=== PATIENT | male | born 1975 | race Caucasian/White ===

== ENCOUNTER 2024-01-28 08:18 | Outpatient (OUT) | payer OTHER, SELFPAY ==
--- NOTE | 2024-01-28 08:29 | XR_ITS ---
The [address] [address] Patient Name: RUTSY RODRIGUEZ MRN: [id number] date: 1975 Sex: M Assigned Patient Location: RAD Current Patient Location: [facility] Accession/Order Number: [id number] Exam Date: 01/28/2024 08:35 Report Date: 01/28/2024 09:39 At the request of: BERTO RICHEY Procedure: XR abdomen 1V EXAMINATION: XR abdomen 1V HISTORY: Ureteral Stone With Hydronephrosis N13.2, Kidney Stones COMPARISON: No relevant comparison available. FINDINGS: KIDNEY/URETER - RIGHT: 6 mm calcification projecting over expected location of right renal pelvis. KIDNEY/URETER - LEFT: No visible renal or ureteral calcifications. PELVIS: Small calcifications within pelvis bilaterally near the expected course of distal ureters; nonspecific. Single calcification lower within the right pelvis compatible with a phlebolith. BOWEL: No abnormal dilation or deviation. BONES: No acute abnormality. OTHER: Negative. No abnormal gaseous collections. XR/XR abdomen 1V IMPRESSION: 1. Suspect 6 mm stone within the right renal pelvis or proximal ureter. 2. Small distal ureteral stone versus pelvic phlebolith bilaterally. 3. No prior studies for comparison. Electronically authenticated by: NANCY NOBLE Date: 01/28/2024 09:39
== END 2024-01-28 08:19 | disposition home or self-care (01) ==
PROVIDERS: Visit Provider Urology
DX: N13.2 Hydronephrosis with renal and ureteral calculous obstruction (principal)
CPT/HCPCS: 74018

== ENCOUNTER 2024-02-07 10:34 | Day surgery (SDC) | payer OTHER, SELFPAY ==
[2024-02-07] VITALS (8 sets, daily range): BP systolic 140–164; BP diastolic 77–104; PULSE 76–92; TEMP 36.1–36.4; O2SAT 92–97; BMI 59.0
--- OUTSIDE RECORDS SUMMARY | 2024-02-07 10:49 | XMS_ITS ---
Patient Summarization (C-CDA 2.1 CCD) Created on: February 07, 2024 RUSTY CONDON : 1975 Sex: Male Author Organization Sample organization Care Team Providers Care Director Of Social Media Marketing Name Role Phone Yumi Morgan Primary Care Provider Yumi Morgan Attending Provider [phone] Fauzia Reed Attending Provider [phone] Yumi Morgan Primary Care Provider [phone] Fauzia Reed Attending Provider Yumi Morgan Attending Provider [phone] Yumi Morgan Unavailable Yumi Morgan Unavailable Yumi Morgan Unavailable Andrea Staton Unavailable Madeline David Unavailable DO Yumi Morgan Primary Care Provider DO Yumi Morgan Attending Provider DO Yumi Morgan Primary Care Provider DO Erna Khan Emergency Provider YUMI MORGAN Primary Care Physician [phone] Yumi Morgan Primary Care Unavailable Erna Khan Attending Unavailable Erna Khan Admitting Unavailable August CHÁVEZ Attending Unavailable YUMI MORGAN Primary Care Unavailable YUMI MORGAN Primary Care Unavailable August CHÁVEZ Attending Unavailable Unavailable Unavailable Unavailable Encounters Encounter Date Encounter Type Care Provider Facility Start: 02-03-2024 End: 02-04-2024 ambulatory YUMI MORGAN Facility:[facility] Start: 02-03-2024 End: 02-03-2024 Patient encounter procedure August Encarnacion CHÁVEZ [facility] Start: 01-10-2024 End: 01-11-2024 ambulatory Augustpaty CHÁVEZ [facility] Start: 01-10-2024 End: 01-10-2024 Patient encounter procedure August CHÁVEZ [facility] Start: 01-09-2024 End: 01-09-2024 ambulatory DO Yumi Morgan Work Phone: [facility] Work Phone: Start: 01-09-2024 End: 01-09-2024 Patient encounter procedure DO Yumi Morgan Work Phone: [facility] [place] Work Phone: Start: 01-08-2024 End: 01-09-2024 Emergency department patient visit Yumi Morgan Facility:[facility] Start: 01-08-2024 End: 01-08-2024 Emergency department patient visit DO Yumi Morgan Work Phone: [facility]gency [facility] Work Phone: Start: 10-21-2023 End: 10-21-2023 ambulatory Yumi Morgan Other [employer] Other Start: 10-21-2023 Telephone encounter Yumi [facility] [place] Start: 09-30-2023 (Procedure) Jonas Morgan [facility] [place] Start: 09-30-2023 End: 09-30-2023 ambulatory Yumi Morgan Other [employer] Other Start: 05-30-2023 (Procedure) Jonas Morgan [facility] [place] Start: 05-30-2023 End: 05-30-2023 ambulatory Yumi Morgan Other [employer] Other Start: 05-21-2023 End: 05-21-2023 ambulatory Yumi Morgan Other [employer] Other Start: 05-21-2023 Telephone encounter Yumi Quach [facility] [place] Start: 04-29-2023 End: 04-29-2023 ambulatory Yumi Morgan Other [employer] Other Start: 04-29-2023 Telephone encounter Yumi Quach [facility] [place] Start: 02-18-2023 End: 02-18-2023 ambulatory Yumi Morgan Other [employer] Other Start: 02-18-2023 Telephone encounter Yumi Quach [facility] [place] Start: 01-14-2023 Encounter for genera l adult medical examination without abnormal findings Yumi Morgan [facility] [place] Start: 01-14-2023 Periodic preventive med est patient 40-64yrs Yumi Daniella [facility] [place] Start: 01-14-2023 End: 01-14-2023 ambulatory DO Yumi Morgan Work Phone: [facility] Work Phone: Start: 01-14-2023 End: 01-14-2023 Patient encounter procedure DO Yumi Morgan Work Phone: [facility] Start: 01-07-2023 End: 01-07-2023 ambulatory Yumi Morgan Other [employer] Other Start: 01-07-2023 Telephone encounter Yumi Quach [facility] Start: 10-18-2022 End: 10-18-2022 ambulatory Madeline David Other [employer] Other Start: 10-18-2022 Patient encounter procedure Madeline David [facility] Start: 07-23-2022 End: 07-23-2022 ambulatory Yumi Morgan Other [employer] Other Start: 07-23-2022 Telephone encounter Yumi [facility] [place] Start: 07-19-2022 (Procedure) Short Yumi Morgan [facility] [place] Start: 07-19-2022 End: 07-19-2022 ambulatory Yumi Morgan Other [employer] Other Start: 07-10-2022 End: 07-10-2022 ambulatory Yumi Morgan Other [employer] Other Start: 07-10-2022 Telephone encounter Yumi Morgan [facility] [place] Start: 04-17-2022 End: 04-17-2022 ambulatory Yumi Morgan Other [employer] Other Start: 04-17-2022 Telephone encounter Yumi Morgan [facility] Start: 01-23-2022 End: 01-23-2022 ambulatory Yumi Morgan Other [employer] Other Start: 01-23-2022 Telephone encounter Yumi Morgan [facility] Start: 01-15-2022 End: 01-15-2022 ambulatory Yumi Morgan Other [employer] Other Start: 01-15-2022 Telephone encounter Yumi Morgan [facility] [place] Start: 01-11-2022 End: 01-11-2022 ambulatory Yumi Morgan Other [employer] Other Start: 01-11-2022 Office outpatient vi sit 15 minutes Yumi Morgan [facility] [place] Start: 01-02-2022 End: 01-02-2022 ambulatory Yumi Morgan Other [employer] Other Start: 01-02-2022 Telephone encounter Yumi [facility]ach [facility] [place] Start: 10-26-2021 End: 10-26-2021 ambulatory Andrea Staton Other [employer] Other Start: 10-26-2021 Office outpatient vi sit 25 minutes Andrea Staton [facility] Start: 09-28-2021 (Procedure) Short Yumi Morgan [facility] [place] Start: 09-28-2021 End: 09-28-2021 ambulatory Yumi Morgan Other [employer] Other Start: 09-05-2021 End: 09-05-2021 ambulatory Yumi Morgan Other [employer] Other Start: 09-05-2021 Telephone encounter Yumi [facility] [place] Start: 09-04-2021 End: 09-04-2021 ambulatory Yumi Morgan Other [employer] Other Start: 09-04-2021 Encounter for genera l adult medical examination without abnormal findings Yumi Morgan [facility] [place] Start: 09-04-2021 Periodic preventive med est patient 40-64yrs Yumi Morgan [facility] [place] Start: 07-21-2021 End: 07-21-2021 ambulatory Yumi Morgan Other [employer] Other Start: 07-21-2021 Telephone encounter Yumi [facility] [place] Start: 07-18-2021 End: 07-18-2021 ambulatory Yumi Morgan Other [employer] Other Start: 07-18-2021 Telephone encounter Yumi [facility] [place] Start: 07-10-2021 Telephone encounter Yumi [facility] [place] Start: 06-22-2021 Office outpatient vi sit 10 minutes Yumi Morgan [facility] [place] Start: 01-11-2021 End: 01-11-2021 Patient encounter procedure Yumi Morgan Work Phone: [facility] Start: 12-17-2020 End: 12-17-2020 Emergency department patient visit Yumi Morgan -Emergency Room Start: 12-11-2020 End: 12-11-2020 Emergency department patient visit Yumi Morgan -Emergency Room Start: 10-31-2020 End: 10-31-2020 Emergency department patient visit Yumi Morgan -Emergency Room Start: 10-27-2020 End: 10-27-2020 Patient encounter procedure Yumi Morgan -Sleep Lab Start: 09-01-2020 End: 09-01-2020 Patient encounter procedure Yumi Morgan -Lab [facility] Medical Equipment Procedure Code Equipment Code Equipment Origin al Text Equipment Identifier Dates Lancets [id number] - Polymeric ureter al stent ()[id number] FDA Start: 08-15-2021 Polymeric ureter al stent ()[id number] FDA Start: 07-19-2021 Goals Date Patient Goal Desired Activity /State Immunizations Immunization Date Immunization Notes Care Provider Fa cility 08-07-2021 COVID-19 Ad26.COV2.S ([place]) DO Yumi Morgan Work Phone: [facility] Comment on above: Result Comment: 2023: [id number] 06-22-2021 Depo-Medrol 80 mg Yumi Wi dmer Other [employer] Other 03-21-2021 Depo-Medrol 40 mg Yumi Wi dmer Other [employer] Other 01-05-2021 Depo-Medrol 80 mg Yumi Wi dmer Other [employer] Other 12-20-2020 Kenalog -40 mg Yumi Widme r Other [employer] Other 10-06-2020 Depo-Medrol 40 mg Yumi Wi dmer Other [employer] Other 10-06-2020 Kenalog -40 mg Yumi Widme r Other [employer] Other 2020 SARS-CoV-2 (COVID-19 ) Ad26 vaccine, recombinant August CHÁVEZ [facility] 06-22-2020 Depo-Medrol 40 mg Yumi Wi dmer Other [employer] Other 06-22-2020 Kenalog -40 mg Yumi Widme r Other [employer] Other 11-26-2019 Kenalog -40 mg Yumi Widme r Other [employer] Other 11-26-2019 Depo-Medrol 80 mg Yumi Wi dmer Other [employer] Other 07-16-2019 Kenalog -40 mg Yumi Widme r Other [employer] Other 07-16-2019 Depo-Medrol 80 mg Yumi Wi dmer Other [employer] Other Medications Current Medications Medication Drug Class(es) Dates Sig (Normalized) Sig (Original) 0.25 MG, 0.5 MG Dose 3 ML semaglutide 0.68 MG/ML Pen Injector [Ozempic] (6 sources) Start: 01-14-2023 Ozempic (0.25 or 0.5 MG/DOSE) 2 MG/3ML 0.25 mg Subcutaneous weekly for 30 days January, Active acetaminophen 325 mg / oxyCODONE hydrochloride 5 mg oral tablet (6 sources) Opioid Agonist Start: 01-08-2024 End: 01-09-2024 take 1 tablet by mouth every six hours Percocet 5 mg-325 mg oral tablet tab(s), Oral, q6hr, Refill(s) 0 Start Date: 01/10/24 Status: Ordered Start: 07-16-2021 End: 07-20-2021 take 1 tablet by mouth every six hours Oxycodone-Acetaminophen (Percocet) 5-325 mg tablet Discontinued 1 - 2 TAB PO Q6H 03 12July 16, 2021 July 20, 2021 7:38am Blood Glucose Test - (20 sources) Start: 12-08-2018 Blood Glucose Test - 1 strip - ONE TOUCH In Vitro daily for 90 days Nov, Active Blood Pressure Cuff - (20 sources) Start: 12-01-2018 Blood Pressure Cuff - as directed Nov, Active cephalexin 500 mg oral capsule (11 sources) Cephalosporin Antibacterial Start: 01-10-2024 take 1 mg by mouth every twelve hours cephalexin 500 mg Cap mg cap(s), Oral, q12hr, Refills(s) 0 Start Date: 01/10/24 Status: Ordered Start: 01-08-2024 take 500 mg by mouth twice daily Cephalexin Active 500 MG PO Twice daily 05 07January 08, 2024 12:00am Start: 11-20-2018 End: 11-30-2018 take 1 capsule by mouth every twelve hours Cephalexin (Keflex) 500 mg capsule Discontinued 500 MG PO Q12H 05 07November 20, 2018 1:00am November 30, 2018 12:02am CPAP Machine (20 sources) CPAP Machine Act genesis 0.5 ml dulaglutide 3 mg/ml auto-injector (11 sources) GLP-1 Receptor Agonist Start: 01-07-20 24 inject 1.5 mg by subcutaneous injection every week Dulaglutide (Trulicity) 1.5 mg/0.5 mL pen injector Active MG SUBCUT January 07, 2024 12:00am 1.5 mg Subcutaneous weekly Start: 01-17-2023 Trulicity 0.75 MG/0.5ML 0.75 mg Subcutaneous weekly for 30 days 1 box = 4 pens January, Active inject 1.5 mg by sub cutaneous injection every week Trulicity 1.5 MG/0.5ML INJECT 1.5 MG UNDER THE SKIN WEEKLY Active ergocalciferol 1.25 mg oral capsule (19 sources) Provitamin D2 Compound Start: 01-07-2024 take 1250 ug by mouth every week Ergocalciferol (Vitamin D2) Active 1250 MCG PO every week January 07, 2024 12:00am Start: 01-15-2022 take 1 capsule by mo uth every week Vitamin D (Ergocalciferol) 1.25 MG (64609 UT) 1 capsule Orally weekly for 30 day(s) January, Active Famotidine (20 sources) Histamine-2 Receptor Antagonist Pepcid PRN Active Glucometer n/a (20 sources) Start: 12-08-2018 Glucometer n/a 1 device as directed Daily once a day Nov, Active glyBURIDE 5 mg oral tablet (20 sources) Sulfonylurea Start: 12-11-2020 Glyburide Active MG TABLET December 11, 2020 10:43am Start: 12-29-2018 GlyBURIDE (Eqv -DiaBeta) 5 mg oral tablet 5 mg = 1 tab(s) Start Date: 07/27/21 Status: Ordered ibuprofen 800 mg oral tablet (14 sources) Nonsteroidal Anti-inflammatory Drug Start: 07-27-2021 ibuprofen 800 mg Tab 800 mg = 1 tab(s) Start Date: 07/27/21 Status: Ordered Start: 07-16-2021 take 600 mg by mouth every eight hours Ibuprofen Active 600 MG PO Q8H July 16, 2021 12:00am Start: 10-31-2020 End: 12-11-2020 take 800 mg by mouth three times daily Ibuprofen Discontinued 800 MG PO Three times daily October 31, 2020 11:19am December 11, 2020 10:43am levothyroxine sodium 0.025 mg oral tablet (20 sources) l-Thyroxine Start: 12-11-2020 take 25 ug by mouth once daily Levothyroxine Active 25 MCG PO Daily December 11, 2020 12:00am Start: 02-22-2020 levothyroxine 25 mcg (0.025 mg) Tab 25 mcg = 1 tab(s), Daily Start Date: 07/27/21 Status: Ordered Start: 02-22-2020 take 1 tablet by yessenia th once daily in the morning Levothyroxine Sodium 25 MCG 1 tablet in the morning on an empty stomach Orally Once a day for 90 day(s) Feb, Active omeprazole 20 mg delayed release oral tablet (1 source) Proton Pump Inhibitor Start: 07-10-2019 take 1 tablet by mouth once daily Omeprazole Magnesium (Prilosec Otc) 20 mg Tablet,Delayed Release (Dr/Ec) Active 20 MG PO Daily July 10, 2019 7:28am ondansetron 4 mg oral tablet (12 sources) Serotonin-3 Receptor Antagonist Start: 07-27-2021 ondansetron 4 mg Tab 4 mg = 1 tab(s), q8hr Start Date: 07/27/21 Status: Ordered Start: 12-11-2020 End: 01-09-2024 take 4 mg by mouth every eight hours Ondansetron Discontinued 4 MG PO Q8H January 08, 2024 12:00am January 09, 2024 9:06am ozempic (0.25 or 0.5 mg/dose) 2 mg/3ml solution pen-injector (3 sources) Start: 01-14-2023 Ozempic (0.25 or 0.5 MG/DOSE) 2 MG/3ML 0.25 mg Subcutaneous weekly for 30 days January, Active pioglitazone 45 mg oral tablet (20 sources) Peroxisome Proliferator Receptor alpha Agonist, Peroxisome Proliferator Receptor gamma Agonist, Thiazolidinedione Start: 12-11-2020 Pioglitazone Active MG TABLET December 11, 2020 10:43am Start: 12-08-2018 pioglitazone 4 5 mg Tab 45 mg = 1 tab(s), Daily Start Date: 07/27/21 Status: Ordered rosuvastatin calcium 40 mg oral tablet (20 sources) HMG-CoA Reductase Inhibitor Start: 12-11-2020 Rosuvastatin Active MG TABLET December 11, 2020 10:43am Start: 12-08-2018 rosuvastatin 4 0 mg Tab 40 mg = 1 tab(s), Daily Start Date: 07/27/21 Status: Ordered tamsulosin hydrochloride 0.4 mg oral capsule (16 sources) alpha-Adrenergic Balbir Start: 12-11-2020 End: 01-09-2024 take 1 capsule by mouth once daily tamsulosin 0.4 mg Cap 0.4 mg = 1 cap(s), Oral, Daily, # 30 cap(s), Refills(s) 0, Pharmacy: [id number], 178, cm, 01/10/24 8:41:00 EDT, Height/Length Dosing, 174, kg, 01/10/24 8:41:00 EDT, Weight Dosing Start Date: 01/10/24 Status: Ordered Completed/Discontinued Medications Medication Drug Class(es) Dates Sig (Normalized) Sig (Original) acetaminophen 325 mg / HYDROcodone bitartrate 5 mg oral tablet (13 sources) Opioid Agonist Start: 10-31-2020 End: 07-16-2021 take 1 tablet by mouth every six hours Hydrocodone-Acetamin ophen Discontinued 1 TAB PO Q6H 12 December 11, 2020 July 16, 2021 2:38am cyclobenzaprine hydrochloride 10 mg oral tablet (8 sources) Muscle Relaxant Start: 12-24-2017 End: 11-20-2018 take 10 mg by mouth three times daily Cyclobenzaprine Discontinued 10 MG PO Three times daily December 24, 2017 12:00am November 20, 2018 8:13pm Dexamethasone (20 sources) Corticosteroid Start: 04-12-2022 DEXAMETHASONE Mar, 4 mg Start: 01-11-2022 DEXAMETHASONE Dec, 4 mg 24 hr diclofenac sodium 100 mg extended release oral tablet (6 sources) Nonsteroidal Anti-inflammatory Drug Start: 12-11-2020 End: 07-16-2021 take 100 mg by mouth twice daily Diclofenac Sodium Discontinued 100 MG PO Twice daily December 11, 2020 12:30pm July 16, 2021 2:38am Durolane (14 sources) Start: 02-21-2023 Durolane Feb, 60 mg methylPREDNISolone acetate 40 mg/ml injectable suspension (20 sources) Corticosteroid Start: 01-11-2022 DEPO-Medrol Mar, 40 mg Start: 01-11-2022 Depo-Medrol 40 mg Dec, 40 mg Start: 09-28-2021 DEPO-Medrol January, 60 mg Start: 09-28-2021 Depo-Medrol 40 mg Sep, 60 mg Start: 06-22-2021 DEPO-Medrol Jul, 60 mg Start: 06-22-2021 Depo-Medrol 80 mg Jun, 60 mg Start: 03-21-2021 Depo-Medrol 40 mg Mar, 40 mg Start: 01-05-2021 Depo-Medrol 80 mg Dec, 80 mg Start: 10-06-2020 Depo-Medrol 40 mg Sep, 40 mg Start: 06-22-2020 Depo-Medrol 40 mg Jun, 40 mg Start: 11-26-2019 Depo-Medrol 80 mg Nov, 40 mg Start: 07-16-2019 Depo-Medrol 80 mg Jun, 40 mg naproxen 500 mg oral tablet (8 sources) Nonsteroidal Anti-inflammatory Drug Start: 12-24-2017 End: 11-20-2018 take 500 mg by mouth every twelve hours at mealtime Naproxen Discontinued 500 MG PO Q12H December 24, 2017 12:00am November 20, 2018 8:13pm administer with food or milk Omeprazole Magnesium (Prilosec Otc) 20 mg Tablet,Delayed Release (Dr/Ec) (7 sources) Start: 07-10-2019 End: 12-11-2020 take 1 tablet by mouth once daily Omeprazole Magnesium (Prilosec Otc) 20 mg Tablet,Delayed Release (Dr/Ec) Discontinued 20 MG PO Daily July 10, 2019 8:28am December 11, 2020 10:43am Start: 07-10-2019 take 1 tablet by yessenia th once daily Omeprazole Magnesium (Prilosec Otc) 20 mg Tablet,Delayed Release (Dr/Ec) Active 20 MG PO Daily July 10, 2019 7:28am Start: 07-10-2019 End: 12-11-2020 take 1 tablet by mouth once daily Omeprazole Magnesium (Prilosec Otc) 20 mg Tablet,Delayed Release (Dr/Ec) Discontinued 20 MG PO Daily July 10, 2019 12:00am December 11, 2020 10:43am oxybutynin chloride 5 mg oral tablet (3 sources) Cholinergic Muscarinic Antagonist Start: 07-19-2021 End: 01-09-2024 take 5 mg by mouth three times daily Oxybutynin Chloride Discontinued 5 MG PO Three times daily July 19, 2021 9:30am January 09, 2024 9:06am sulfamethoxazole 800 mg / trimethoprim 160 mg oral tablet (8 sources) Dihydrofolate Reductase Inhibitor Antibacterial, Sulfonamide Antimicrobial Start: 11-20-2018 End: 11-30-2018 take 1 tablet by mouth twice daily Sulfamethoxazole- Trimethoprim (Bactrim Ds) 800-160 mg tablet Discontinued 1 TAB PO Twice daily 05 07November 20, 2018 1:00am November 30, 2018 12:02am triamcinolone acetonide 40 mg/ml injectable suspension (20 sources) Corticosteroid Start: 10-18-2022 Kenalog-40 Oct, 40 mg Start: 12-20-2020 Kenalog -40 mg Dec, 40 mg Start: 10-06-2020 Kenalog -40 mg Sep, 40 mg Start: 06-22-2020 Kenalog -40 mg Jun, 1 mL Start: 11-26-2019 Kenalog -40 mg Nov, 1 mL Start: 07-16-2019 Kenalog -40 mg Jun, 20 mg Tylenol 8 Hour 650 MG (16 sources) take 2 tablets by mo ut every eight hours as needed Tylenol 8 Hour 650 MG 2 tablets as needed Orally every 8 hrs Not-Taking Payers Date Payer Category Payer Self-pay [id number] 2023 Unknown [id number] [id number] 1975 Unknown [id number] 1975 Unknown [id number] Medicaid [id number] Medicaid [id number] 3 Unknown Self Pay [id number] Unknown [id number] 2.1 [id number] Unknown [facility] [id number] 2 Unknown [id number] Plan of Treatment Date Care Activity Detail Author Start: 01-08-2024 CT Abdomen and Pelvi s WO contrast [facility] Start: 01-08-2024 CT of abdomen and pelvis without contrast CT abdomen pelvis wo con [facility] Start: 01-11-2021 MRI of right knee MR knee RT wo [facility] Patient Education [facility] Patient referral [facility] Problems Problem Classification Problem Date Documented Date Episodic/Chronic Abdominal pain (1 source) Right lower quadrant pain; Translations: [Right lower quadrant pain] Onset: 01-08-2024 Episodic Acute and unspecified renal failure (3 sources) Injury of kidney; Translations: [Acute kidney failure, unspecified] 07-19-2021 Episodic Calculus of urinary tract (20 sources) Ureteric stone of lower third of ureter; Translations: [Calculus of ureter] Onset: 01-08-2024 07-18-2021 Episodic Diabetes mellitus with complications (20 sources) Type 2 diabetes mellitus; Translations: [Type 2 diabetes mellitus with hyperglycemia] Onset: 09-04-2021 Resolved: 01-02-2022 Chronic Diabetes mellitus without complication (20 sources) Type 2 diabetes mellitus without complication; Translations: [Type 2 diabetes mellitus without complications] 07-19-2021 Chronic Disorders of lipid metabolism (20 sources) Mixed hyperlipidemia; Translations: [Mixed hyperlipidemia] Onset: 09-04-2021 Resolved: 04-17-2022 Chronic Genitourinary symptoms and ill-defined conditions (2 sources) Microscopic hematuria 07-27-2021 Episodic Joint disorders and dislocations; trauma-related (20 sources) Internal derangement of right knee; Translations: [Unspecified internal derangement of right knee] Chronic Malaise and fatigue (1 source) Chronic fatigue, unspecified Onset: 01-11-2022 Resolved: 01-11-2022 Chronic Nutritional deficiencies (11 sources) Vitamin D deficiency, unspecified; Translations: [Vitamin D deficiency] Onset: 01-11-2022 Resolved: 01-11-2022 Chronic Osteoarthritis (20 sources) Osteoarthritis of left knee joint; Translations: [Unilateral primary osteoarthritis, left knee] Onset: 06-22-2021 Resolved: 01-11-2022 Chronic Other aftercare (20 sources) High risk drug monitoring status; Translations: [intermission coordinator (current) use of opiate analgesic] Episodic Other circulatory disease (8 sources) Elevated blood pressure; Translations: [Elevated blood-pressure reading, without diagnosis of hypertension] 12-24-2017 Episodic Other connective tissue disease (7 sources) Rupture of tendon of biceps; Translations: [Strain of muscle, fascia and tendon of other parts of biceps, unspecified arm, initial encounter] 10-31-2020 Episodic Other diseases of kidney and ureters (2 sources) Urinary tract obstruction; Translations: [Hydronephrosis with renal and ureteral calculous obstruction] Onset: 01-10-2024 Episodic Other diseases of kidney and ureters (2 sources) Hydronephrosis 07-27-2021 Episodic Other hereditary and degenerative nervous system conditions (20 sources) Restless legs; Translations: [Restless legs syndrome] Chronic Other injuries and conditions due to external causes (8 sources) Muscle strain; Translations: [Other injury of unspecified body region, initial encounter] 12-24-2017 Episodic Other nutritional; endocrine; and metabolic disorders (20 sources) Body mass index 40+ - severely obese; Translations: [Body mass index (BMI) 50.0-59.9, adult] 11-09-2021 Chronic Other nutritional; endocrine; and metabolic disorders (1 source) Body mass index (BMI) 50.0-59.9, adult Onset: 10-26-2021 Resolved: 10-26-2021 Chronic Other nutritional; endocrine; and metabolic disorders (20 sources) Excessive thirst; Translations: [Polydipsia] Episodic Other screening for suspected conditions (not mental disorders or infectious disease) (1 source) Encounter for screening for malignant neoplasm of colon Episodic Other upper respiratory infections (8 sources) Viral upper respiratory tract infection; Translations: [Acute upper respiratory infection, unspecified] 07-10-2019 Episodic Residual codes; unclassified (20 sources) Idiopathic sleep related non-obstructive alveolar hypoventilation; Translations: [Idiopathic sleep related nonobstructive alveolar hypoventilation] Chronic Residual codes; unclassified (20 sources) Obstructive sleep apnea syndrome; Translations: [Obstructive sleep apnea (adult) (pediatric)] Chronic Residual codes; unclassified (1 source) Obstructive sleep apnea (adult) (pediatric) Onset: 10-26-2021 Resolved: 10-26-2021 Chronic Residual codes; unclassified (3 sources) Pain; Translations: [Pain, unspecified] 07-19-2021 Episodic Residual codes; unclassified (3 sources) Other specified health status; Translations: [Failure of outpatient treatment] 07-19-2021 Episodic Spondylosis; intervertebral disc disorders; other back problems (20 sources) Neck pain; Translations: [Cervicalgia] Episodic Sprains and strains (5 sources) Strain of knee; Translations: [Strain of unspecified muscle(s) and tendon(s) at lower leg level, unspecified leg, initial encounter] 12-17-2020 Episodic Thyroid disorders (20 sources) Acquired hypothyroidism; Translations: [Hypothyroidism, unspecified] Onset: 07-10-2021 Resolved: 01-02-2022 Chronic Thyroid disorders (3 sources) Disorder of thyroid gland; Translations: [Disorder of thyroid, unspecified] 07-19-2021 Episodic Procedures Date Procedure Procedure Detail Performing Clinician Start: 01-08-2024 CT of abdomen and pe lvis without contrast DO Yumi Morgan Work Phone: Start: 08-28-2021 Cystoscopic removal of ureteric stent August CHÁVEZ Start: 07-19-2021 Cystoscope, device (physical object) August CHÁEVZ Start: 12-17-2020 X-ray of right knee Beck Morgan Start: 12-11-2020 CT abdomen pelvis wo con Yumi Morgan Knee region structur e (body structure) August CHÁVEZ Results Test Name Value Interpretation Reference Range Facility Patient Educationon 02-03-20 Patient Education Urology Kidney Stones Kidney stones are solid, rock-like deposits that form inside of the kidneys. The kidneys are a pair of organs that make urine. A kidney stone may form in a kidney and move into other parts of the urinary tract, including the tubes that connect the kidneys to the bladder (ureters), the bladder, and the tube that carries urine out of the body (urethra). As the stone moves through these areas, it can cause intense pain and block the flow of urine. Kidney stones are created when high levels of certain minerals are found in the urine. The stones are usually passed out of the body through urination, but in some cases, medical treatment may be needed to remove them. What are the causes? Kidney stones may be caused by: ? A condition in which certain glands produce too much parathyroid hormone (primary hyperparathyroidism), which causes too much calcium buildup in the blood. ? A buildup of uric acid crystals in the bladder (hyperuricosuria). Uric acid is a chemical that the body produces when you eat certain foods. It usually leaves the body in the urine. ? Narrowing (stricture) of one or both of the ureters. ? A kidney blockage that is present at (congenital obstruction). ? Past surgery on the kidney or the ureters. What increases the risk? The following factors may make you more likely to develop this condition: ? Having had a kidney stone in the past. ? Having a family history of kidney stones. ? Not drinking enough water. ? Eating a diet that is high in protein, salt (sodium), or sugar. ? Being overweight or obese. What are the signs or symptoms? Symptoms of a kidney stone may include: ? Pain in the side of the abdomen, right below the ribs (flank pain). Pain usually spreads (radiates) to the groin. ? Needing to urinate often or urgently. ? Painful urination. ? Blood in the urine (hematuria). ? Nausea. ? Vomiting. ? Fever and chills. How is this diagnosed? This condition may be diagnosed based on: ? Your symptoms and medical history. ? A physical exam. ? Blood tests. ? Urine tests. These may be done before and after the stone passes out of your body through urination. ? Imaging tests, such as a CT scan, abdominal X-ray, or ultrasound. ? A procedure to examine the inside of the bladder (cystoscopy). How is this treated? Treatment for kidney stones depends on the size, location, and makeup of the stones. Kidney stones will often pass out of the body through urination. You may need to: ? Increase your fluid intake to help pass the stone. In some cases, you may be given fluids through an IV and may need to be monitored in the hospital. ? Take medicine for pain. ? Make changes in your diet to help prevent kidney stones from coming back. Sometimes, procedures are needed to remove a kidney stone. This may involve: ? A procedure to break up kidney stones using: ? A focused beam of light (laser therapy). ? Shock waves (extracorporeal shock wave lithotripsy). ? Surgery to remove kidney stones. This may be needed if you have severe pain or have stones that block your urinary tract. Follow these instructions at home: Medicines ? Take ylby-tde-skjnxam and prescription medicines only as told by your health care provider. ? Ask your health care provider if the medicine prescribed to you requires you to avoid driving or using heavy machinery. Eating and drinking ? Drink enough fluid to keep your urine pale yellow. You may be instructed to drink at least 8?10 glasses of water each day. This will help you pass the kidney stone. ? If directed, change your diet. This may include: ? Limiting how much sodium you eat. ? Eating more fruits and vegetables. ? Limiting how much animal protein you eat. Animal proteins include red meat, poultry, fish, and eggs. ? Eating a normal amount of calcium (1,000?1,300 mg per day). ? Follow instructions from your health care provider about eating or drinking restrictions. General instructions ? Collect urine samples as told by your health care provider. You may need to collect a urine sample: ? 24 hours after you pass the stone. ? 8?12 weeks after you pass the kidney stone, and every 6?12 months after that. ? Strain your urine every time you urinate, for as long as directed. Use the strainer that your health care provider recommends. ? Do not throw out the kidney stone after passing it. Keep the stone so it can be tested by your health care provider. Testing the makeup of your kidney stone may help prevent you from getting kidney stones in the future. ? Keep all follow-up visits. You may need follow-up X-rays or ultrasounds to make sure that your stone has passed. How is this prevented? To prevent another kidney stone: ? Drink enough fluid to keep your urine pale yellow. This is the best way to prevent kidney stones. ? Eat a healthy diet. Follow recommendations from (more content not included)... 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 Denies passing of stone since last encounter. Has been straining urine. Denies flank pain. Denies difficulty voiding. History of Present Illness Tests reviewed: reviewed UA, KUB I have reviewed the previous health record information and history for this patient from Dr. Chávez. I have reviewed and verified the staff HPI to be accurate for this encounter. Review of Systems PHQ Score Initial Depression Screen Score: 0 SCORE ROS - Provider Constitutional: denies weight loss, denies hot flashes. Eyes: denies eye problems. Gastrointestinal: denies nausea, denies vomiting. Cardiovascular: denies chest pain or angina. Integumentary: no dryness Musculoskeletal: denies musculoskeletal symptoms. ENMT: denies otolaryngeal symptoms. Respiratory: no shortness of breath. Heme/Lymph: denies easy bleeding tendency, denies easy bruising tendency. Psychiatric: no confusion, no anxiety. Genitourinary: See HPI. Physical Exam Vitals & Measurements HR: 77(Peripheral) RR: 16 BP: 135/86 HT: 70 in HT: 178 cm WT: 174 kg WT: 382.8 lb BMI: 54.92 General Appearance: alert, no distress, well nourished, well developed male. Genitourinary: normal scrotum, normal testes, normal urethra, normal epididymis, normal vas deferens/spermatic cord. Flank Pain: none. Bladder: nonpalpable. Assessment/Plan KML pt. 1. Ureteral stone with hydronephrosis (N13.2: Hydronephrosis with renal and ureteral calculous obstruction) [facility] ER 01/08/24 with right-sided flank pain. CT AP wo IV con 01/08/24 - a 6 mm distal right ureteral stone with mild hydronephrosis present. Stone is 2 cm from the UVJ. Right perinephric and periureteral stranding. KUB 01/28/24 [facility] - 6 mm calcification projecting over expected location of R renal pelvis. No visible L renal or ureteral calcifications. Small calcifications within pelvis bilaterally near expected course of distal ureters. Denies any stone passage since last encounter. Denies any flank pain. No changes in urinary pattern. UA today shows small blood, likely due to stone. Denies gross hematuria. Reviewed imaging results, R ureteral stone in place. However discussed pt may have passed stone after last appt. Discussed further imaging to better evaluate if stone has truly passed. -Obtain XR IVP. Will call pt with results -Increase fluid intake -Strain urine -If pt passes stone, proceed with metabolic workup 2. Kidney stones (N20.0: Calculus of kidney) S/p L ESWL 08/15/2021. S/p cysto w/ L stent removal 08/28/21. KUB 09/28/2021 shows a punctate Lt kidney fragment. Renal US 10/16/2021 neg for stones or hydro. CT AP wo IV con 01/08/24 [facility] - nonobstructing right nephrolithiasis measuring up to 5 mm. KUB 01/28/24 [facility] - 6 mm calcification projecting over expected location of R renal pelvis. No visible L renal or ureteral calcifications. Small calcifications within pelvis bilaterally near expected course of distal ureters. Discussed treating right renal stone once pt either passes ureteral stone or is treated surgically. Pt agrees with plan. -Will eventually treat right stone Follow-up With When Contact Information KAIDEN CONNER, August Encarnacion, URL [facility] [address], [place] [address]- [phone] Additional Instructions: f/u pending IVP results Patient Education Kidney Stones I, Jessica Barajas, personally scribed for Dr. Chávez on 02/03/2024 13:10:06. . Documentation recorded by the scribe, Jessica Barajas, accurately reflects the services(s) I performed and decisions made by me. Authenticated by Dr. Chávez on 02/03/2024 13:12:01. Problem List/Past Medical History Ongoing BMI 50.0-59.9, adult Hyperlipidemia Hypothyroid Kidney stones Microscopic hematuria Type 1 diabetes Ureteral stone with hydronephrosis Historical No qualifying data Procedure/Surgical History Cystoscopic removal of ureteric stent (08/28/2021), Cystoscope (07/19/2021), Knee. Medications GlyBURIDE (Eqv-DiaBeta) 5 mg oral tablet, 5 mg= 1 tab(s) ibuprofen 800 mg Tab, 800 mg= 1 tab(s) levothyroxine 25 mcg (0.025 mg) Tab, 25 mcg= 1 tab(s), Daily pioglitazone 45 mg Tab, 45 mg= 1 tab(s), Daily rosuvastatin 40 mg Tab, 40 mg= 1 tab(s), Daily tamsulosin 0.4 mg Cap, 0.4 mg= 1 cap(s), Oral, Daily Allergies No Known Allergies Social History Alcohol - Denies Alcohol Use, 07/27/2021 Tobacco Former smoker, quit more than 30 days ago Tobacco Use:. Never Smokeless Tobacco Use:. Cigarettes, Household tobacco concerns: No. Yes, 02/03/2024 Family History Diabetes mellitus: Grandparent. Epilepsy: Grandparent. Immunizations Vaccine Date Status Comments SARS-CoV-2 (COVID-19) Ad26 vaccine 08/07/2021 Recorded 2024-02-03: TPV40 SARS-CoV-2 (COVID-1 (more content not included)... Normal [facility] Comment on above: Result Comment: Elec tronically Signed By: August CHÁVEZ MD\.br\Date and Time Signed: 02/03/24 13:12 EDT\.br\Electronically Co-Signed By: Jessica Barajas\.br\Date and Time Co-Signed: 02/03/24 13:10 EDT RAD - MISCon 02-01-2024 RAD - MISC [id number] [facility] Ambulatory Visit Summaryon 0 01-10-2024 Ambulatory Visit Summary RUSTY CONDON :1975 Visit Date:01/10/2024 Ambulatory Visit Instructions Your Diagnosis Ureteral stone with hydronephrosis Kidney stones Tests Performed XR Abdomen 1 View -- Results Pending -- Please visit your patient portal for your results or contact your primary care physician. Your Care Team Attending Physician - August CHÁVEZ MD Primary Care Physician - YUMI MORGAN DO This Is Your Medications List tamsulosin (tamsulosin 0.4 mg Cap) Contact prescribing physician if questions or concerns acetaminophen-oxycodone (Percocet 5 mg-325 mg oral tablet) cephalexin (cephalexin 500 mg Cap) glyBURIDE (GlyBURIDE (Eqv-DiaBeta) 5 mg oral tablet) ibuprofen (ibuprofen 800 mg Tab) levothyroxine (levothyroxine 25 mcg (0.025 mg) Tab) ondansetron (ondansetron 4 mg Tab) pioglitazone (pioglitazone 45 mg Tab) rosuvastatin (rosuvastatin 40 mg Tab) Procedures Performed Cystoscopic removal of ureteric stent (08/28/2021), Cystoscope (07/19/2021). Discharge Vitals Temperature (Temporal Artery) 37 ?C Heart Rate (Peripheral) 80 Respiratory Rate 16 Blood Pressure 138/87 Height 178 cm Height 70 in Weight 174 kg Weight 382.8 lb BMI 54.92 What to do next Scheduled Follow-Up Appointments Saturday 12:00 PM EDT With: August CHÁVEZ MD Where: [facility] Emergency Department ED Note-Physicianon 01-10-20 ED Note-Physician [id number] [facility] Patient Educationon 01-10-20 Patient Education Urology Kidney Stones Kidney stones are rock-like masses that form inside of the kidneys. Kidneys are organs that make pee (urine). A kidney stone may move into other parts of the urinary tract, including: ? The tubes that connect the kidneys to the bladder (ureters). ? The bladder. ? The tube that carries urine out of the body (urethra). Kidney stones can cause very bad pain and can block the flow of pee. The stone usually leaves your body (passes) through your pee. You may need to have a doctor take out the stone. What are the causes? Kidney stones may be caused by: ? A condition in which certain glands make too much parathyroid hormone (primary hyperparathyroidism). ? A buildup of a type of crystals in the bladder made of a chemical called uric acid. The body makes uric acid when you eat certain foods. ? Narrowing (stricture) of one or both of the ureters. ? A kidney blockage that you were born with. ? Past surgery on the kidney or the ureters, such as gastric bypass surgery. What increases the risk? You are more likely to develop this condition if: ? You have had a kidney stone in the past. ? You have a family history of kidney stones. ? You do not drink enough water. ? You eat a diet that is high in protein, salt (sodium), or sugar. ? You are overweight or very overweight (obese). What are the signs or symptoms? Symptoms of a kidney stone may include: ? Pain in the side of the belly, right below the ribs (flank pain). Pain usually spreads (radiates) to the groin. ? Needing to pee often or right away (urgently). ? Pain when going pee (urinating). ? Blood in your pee (hematuria). ? Feeling like you may vomit (nauseous). ? Vomiting. ? Fever and chills. How is this treated? Treatment depends on the size, location, and makeup of the kidney stones. The stones will often pass out of the body through peeing. You may need to: ? Drink more fluid to help pass the stone. In some cases, you may be given fluids through an IV tube put into one of your veins at the hospital. ? Take medicine for pain. ? Make changes in your diet to help keep kidney stones from coming back. Sometimes, medical procedures are needed to remove a kidney stone. This may involve: ? A procedure to break up kidney stones using a beam of light (laser) or shock waves. ? Surgery to remove the kidney stones. Follow these instructions at home: Medicines ? Take obda-oas-zvvxwjd and prescription medicines only as told by your doctor. ? Ask your doctor if the medicine prescribed to you requires you to avoid driving or using heavy machinery. Eating and drinking ? Drink enough fluid to keep your pee pale yellow. You may be told to drink at least 8?10 glasses of water each day. This will help you pass the stone. ? If told by your doctor, change your diet. This may include: ? Limiting how much salt you eat. ? Eating more fruits and vegetables. ? Limiting how much meat, poultry, fish, and eggs you eat. ? Follow instructions from your doctor about eating or drinking restrictions. General instructions ? Collect pee samples as told by your doctor. You may need to collect a pee sample: ? 24 hours after a stone comes out. ? 8?12 weeks after a stone comes out, and every 6?12 months after that. ? Strain your pee every time you pee (urinate), for as long as told. Use the strainer that your doctor recommends. ? Do not throw out the stone. Keep it so that it can be tested by your doctor. ? Keep all follow-up visits as told by your doctor. This is important. You may need follow-up tests. How is this prevented? To prevent another kidney stone: ? Drink enough fluid to keep your pee pale yellow. This is the best way to prevent kidney stones. ? Eat healthy foods. ? Avoid certain foods as told by your doctor. You may be told to eat less protein. ? Stay at a healthy weight. Where to find more information ? National Kidney Foundation (NKF): www.kidney.org ? [employer] (UCF): www.urologyhealth.org Contact a doctor if: ? You have pain that gets worse or does not get better with medicine. Get help right away if: ? You have a fever or chills. ? You get very bad pain. ? You get new pain in your belly (abdomen). ? You pass out (faint). ? You cannot pee. Summary ? Kidney stones are rock-like masses that form inside of the kidneys. ? Kidney stones can cause very bad pain and can block the flow of pee. ? The stones will often pass out of the body through peeing. ? Drink enough fluid to keep your pee pale yellow. This information is not intended to replace advice given to you by your health care provider. Make sure you discuss any questions you have with your health care provider. Document Revised: 05/07/2022 Document Reviewed: 05/07/2022 [employer] Patient Education ? 2022 [employer] [facility] Provider Letteron 01-10-2024 Provider Letter (Inserted Image. Cecy ble to display) January 10, 2024 RUSTYChristophe CONDON [address] [place] [id number] : 1975 To Whom It May Concern, Please excuse above patient from work. Date of Illness: From: 01/10/24 To: 01/10/24 May Return to Work On: 01/11/24 Restrictions: None Comments: Patient had an appointment on 01/10/[address] August Chávez. Sincerely, [facility] Normal [facility] RAD - CT Reporton 01-10-[address] - [address] Report [id number] Normal [facility] Urology Office/Clinic Noteon 01-10-2024 Urology Office/Clinic Note Chief Complaint right ureteral stone HPI Staff F/u to [facility] ED visit 01/08/24 for right sided flank pain. Has a hx of kidney stones. CT done 01/08/24 showed a 6mm distal right ureteral calculus with mild hydronephrosis. Pt states that the pain subsided around 1pm yesterday and has not returned. He has not noticed passing any stones. Dysuria: no Incomplete bladder emptying: no Hematuria: none at any time Frequency: pt is going every couple of hours now but for about 3 days leading up to his OV he was voiding about every 15 minutes or so Urgency: no Nocturia: pt does not get up Stream: good steady stream Leaking: no Post void dripping: no Wearing pads/ Depends: no Urge incontinence: no Stress incontinence: no Incontinence without Sensory Awareness: no Abdominal pain: none at this time subsided yesterday Flank pain: none at this time Sexual complaints: no History of Present Illness Tests reviewed: reviewed UA, CT, ER records. I have reviewed the previous health record information and history for this patient from Dr. Wu and external provider. I have reviewed and verified the staff HPI to be accurate for this encounter. There have been no associated fever, chills, flank pain, or blood in the urine. Denies any urinary infections since last encounter. Review of Systems PHQ Score Initial Depression Screen Score: 0 SCORE ROS - Provider Constitutional: denies weight loss, denies hot flashes. Eyes: denies eye problems. Gastrointestinal: denies nausea, denies vomiting. Cardiovascular: denies chest pain or angina. Integumentary: no dryness Musculoskeletal: denies musculoskeletal symptoms. ENMT: denies otolaryngeal symptoms. Respiratory: no shortness of breath. Heme/Lymph: denies easy bleeding tendency, denies easy bruising tendency. Psychiatric: no confusion, no anxiety. Genitourinary: See HPI. Physical Exam Vitals & Measurements T: 37 ?C(Temporal Artery) HR: 80(Peripheral) RR: 16 BP: 138/87 HT: 70 in HT: 178 cm WT: 174 kg WT: 382.8 lb BMI: 54.92 General Appearance: alert, no distress, well nourished, well developed male. Flank Pain: none. abd is nontender Assessment/Plan KML pt. Last seen 11/09/21. 1. Ureteral stone with hydronephrosis (N13.2: Hydronephrosis with renal and ureteral calculous obstruction) Pt presented to [facility] ER 01/08/24 with right-sided flank pain. CT AP wo IV con 01/08/24 shows a 6 mm distal right ureteral stone with mild hydronephrosis present. Stone is 2 cm from the UVJ. Right perinephric and periureteral stranding. ER started pt on Flomax, Ibuprofen, Percocet, Keflex, and Zofran. Pt was not provided a strainer. Has been checking the toilet after he voids to see if he passed the stone. Has not noticed anything yet. Pain has subsided since yesterday. Denies gross hematuria. UA today shows trace-intact blood. Has been voiding frequently. Nontender on exam today. Pt may have passed stone, however not confirmed. Will have pt follow up in 2-3 weeks with KUB. Pt to call and cx appointment if he passes stone. Pt advised to obtain stone specimen so it can be sent for stone analysis. Possible cysto, ureteroscopy, laser litho with stent if pt does not pass stone. Would treat renal stone at that same time. -Strainer provided, cont Flomax, refill sent -Pt to call the office if pain recurs or present back to the ER if severe -Follow up in 2 wks w/ KUB -Metabolic workup in the future 2. Kidney stones (N20.0: Calculus of kidney) S/p L ESWL 08/15/2021. S/p cysto w/ L stent removal 08/28/21. KUB 09/28/2021 shows a punctate Lt kidney fragment. Renal US 10/16/2021 neg for stones or hydro. CT AP wo IV con 01/08/24 shows nonobstructing right nephrolithiasis measuring up to 5 mm. Discussed treating right renal stone once pt either passes ureteral stone or is treated surgically. Pt agrees with plan. -Will eventually treat right stone Follow-up With When Contact Information KAIDEN CONNER, August Encarnacion, URL [address] [id number] Additional Instructions: 2 weeks w/ KUB Patient Education Kidney Stones, [id number] I, Carrie Norwood, personally scribed for Dr. Chávez on 01/10/2024 09:01:49. . Documentation recorded by the scribe, Carrie Norwood, accurately reflects the services(s) I performed and decisions made by me. Authenticated by Dr. Chávez on 01/10/2024 09:04:46. Problem List/Past Medical History Ongoing BMI 50.0-59.9, adult Hyperlipidemia Hypothyroid Kidney stones Microscopic hematuria Type 1 diabetes Ureteral stone with hydronephrosis Historical No qualifying data Procedure/Surgical History Cystoscopic removal of ureteric stent (08/28/2021), Cystoscope (07/19/2021). Medications cephalexin 500 mg Cap, Oral, q12hr GlyBURIDE (Eqv-DiaBeta) 5 mg oral tablet, 5 mg= 1 tab(s) ibuprofen 800 mg Tab, 800 mg= 1 tab(s) levothyroxine 25 mcg (0.025 mg) T (more content not included)... Normal [facility] Comment on above: Result Comment: Elec tronically Signed By: August CHÁVEZ MD\.br\Date and Time Signed: 01/10/24 09:04 EDT\.br\Electronically Co-Signed By: Carrie Norwood\.br\Date and Time Co-Signed: 01/10/24 09:[address] abdomen pelvis wo conon 0 01-09-2024 CT abdomen pelvis wo con [facility] [address] [place] [address] CT Scan Report Signed Patient: Rusty Condon MR#: [id number] : 1975 Acct:[id number] Age/Sex: 48 / M ADM Date: 01/08/24 Loc: ER Room: Type: [facility] ER Attending Dr: Copies to: Erna Khan DO Ordering Provider: Erna Khan DO Date of Service: 01/08/24 CT/CT abdomen pelvis wo con: abdominal pain CT Abdomen and Pelvis withoutcontrast TECHNIQUE: Axial imaging with 2-D reconstruction. . The CT exam was performed using one or more the following dose reduction techniques: Automated exposure control, adjustment of the MA and/or Kv according to patient size, or use of the iterative reconstruction technique. COMPARISON: 07/16/2021 History: Right flank pain. LIMITATIONS: None LOWER THORAX mild atelectasis. LIVER: Unremarkable GALLBLADDER: No gallbladder abnormality identified. BILE DUCTS: No dilatation SPLEEN: Unremarkable PANCREAS: Unremarkable ADRENAL GLANDS: Unremarkable KIDNEYS:6 mm distal right ureteral stone with mild hydronephrosis present. Stone is 2 cm from the ureterovesical junction. Right perinephric and periureteral stranding. Nonobstructing right nep hrolithiasis measuring up to 5 mm.. AORTA: No abdominal aortic aneurysm identified. Mild atherosclerosis. RETROPERITONEUM: No significant retroperitoneal abnormalities identified. MESENTERY:Unremarkable SMALL BOWEL: The small bowel loops are nondistended. APPENDIX: The appendix is normal. COLON: Unremarkable URINARY BLADDER: Urinary bladder is unremarkable. REPRODUCTIVE SYSTEM: Reproductive structures are unremarkable. PNEUMOPERITONEUM: None PERITONEAL FLUID:None BONY STRUCTURES: Degenerative change. ABDOMINAL WALL: Large fat-containing umbilical hernia redemonstrated. CT/CT abdomen pelvis wo con IMPRESSION: 6 mm distal right ureteral calculus with mild hydronephrosis. Right nephrolithiasis. Redemonstration of large fat-containing. Umbilical hernia. Impression dictated by: Maxime Kyle M.D.01/09/2024 7:49 AM Dictation Location: [place] [id number] Transcribed By: [facility] 01/09/24 0749 Dictated By: Maxime Kyle DO 01/09/24 0744 Signed By: 01/09/24 0749 Normal [facility] ECG 12 lead ECG 01-09-2024 ECG 12 lead ECG [facility] [place] [address] Electrocardiograph Report Signed Patient: Rusty Condon MR#: [id number] [birth year] : 1975 Acct:[id number] Age/Sex: 48 / M ADM Date: 01/08/24 Loc: ER Room: Type: [facility] ER Attending Dr: Ordering Provider: Erna Khan DO Date of Service: 01/08/24 ECG/ECG 12 lead ECG: Abdominal Pain Copies to: Test Reason : Blood Pressure : 174/096 mmHG Vent. Rate : 094 BPM Atrial Rate : 094 BPM P-R Int : 180 ms QRS Dur : 096 ms QT Int : 338 ms P-R-T Axes : 067 008 078 degrees QTc Int : 422 ms Normal sinus rhythm Normal ECG When compared with ECG of 19-JUL-2021 08:40, No significant change was found Confirmed by ERNA KHAN DO ([id number]) on 01/09/2024 12:36:02 AM Referred By: Electronically Signed By:ERNA KHAN DO Transcribed By: MUS Signed By Erna Khan DO 01/08 0036 Normal [facility] Alanine aminotransferase [En zymatic activity/volume] in Serum or PlasmaOrdered By: Erna Khan on 01-08-2024 ALT [Catalytic activity/Vol] 15 U/L 7-52 [facility] Albumin [Mass/volume] in Ser um or Plasma by Bromocresol green (BCG) dye binding methoOrdered By: Erna Khan on 01-08-2024 Albumin BCG dye [Mass/Vol] 4.3 g/dL 3.5-5.7 [facility] Alkaline phosphatase [Enzyma tic activity/volume] in Serum or PlasmaOrdered By: Erna Khan on 01-08-2024 ALP [Catalytic activity/Vol] 39 U/L 34-104 [facility] Aspartate aminotransferase [ Enzymatic activity/volume] in Serum or PlasmaOrdered By: Erna Khan on 01-08-2024 AST [Catalytic activity/Vol] 18 U/L 13-39 [facility] Automated erythrocytes count in urine sediment (number/area)Ordered By: Erna Khan on 01-08-2024 RBC Auto (Urine sed) [#/Area] 3-4 [HPF] 0-4 [facility] Automated leukocytes count i n urine sediment (number/area)Ordered By: Erna Khan on 01-08-2024 WBC Auto (Urine sed) [#/Area] 0-1 [HPF] 0-4 [facility] Basic Metabolic Panelon 12-16 Anion gap [Moles/Vol] 10.5 mmol/L Normal 6.0-15.0 [facility] Comment on above: Performed By: #### C BC, LIPASE, HEPATIC, BMP #### [facility] [address] [place] [address] [place] Calcium [Mass/Vol] 9.8 mg/dL Normal 8.6-10.3 [facility] Comment on above: Performed By: #### C BC, LIPASE, HEPATIC, BMP #### [facility] [address] [place] [address] [place] Chloride [Moles/Vol] 102 mmol/L Normal 98-107 [facility] Comment on above: Performed By: #### C BC, LIPASE, HEPATIC, BMP #### [facility] [address] [place] [address] [place] CO2 [Moles/Vol] 31.3 mmol/L High 21.0-31.0 [facility] Comment on above: Performed By: #### C BC, LIPASE, HEPATIC, BMP #### [facility] [address] [place] [id number] [place] Creatinine [Mass/Vol] 1.03 mg/dL Normal 0.70-1.30 [facility] Comment on above: Performed By: #### C BC, LIPASE, HEPATIC, BMP #### [facility] [address] [place] [address] [place] Creatinine Clr Calc Pharmacy 148.77 Normal [facility] Comment on above: Performed By: #### C BC, LIPASE, HEPATIC, BMP #### [facility] [address] [place] [id number] [place] GFR/1.73 sq M.predicted MDRD (S/P/Bld) [Vol rate/Area] mL/min/{1.73_m2} Normal [facility] Comment on above: Performed By: #### C BC, LIPASE, HEPATIC, BMP #### [facility] [address] Glucose [Mass/Vol] 125 mg/dL High 70-100 [facility] Comment on above: Result Comment: [place] Glucose Reference Range is dependent on time and content of last meal. Glucose of more than 200 mg/dL in a nonstressed, ambulatory subject supports the diagnosis of Diabetes Mellitus. ADA recommended reference range Performed By: #### C BC, LIPASE, HEPATIC, BMP #### [facility] [address] Potassium [Moles/Vol] 3.8 mmol/L Normal 3.5-5.1 [facility] Comment on above: Performed By: #### C BC, LIPASE, HEPATIC, BMP #### [facility] [address] [place] [address] [place] Sodium [Moles/Vol] 140 mmol/L Normal 136-145 [facility] Comment on above: Performed By: #### C BC, LIPASE, HEPATIC, BMP #### [facility] [address] Urea nitrogen [Mass/Vol] 18 mg/dL Normal 7-25 [facility] Comment on above: Performed By: #### C BC, LIPASE, HEPATIC, BMP #### [facility] [address] Basophils Auto (Bld) [#/Vol] Ordered By: Erna Khan on 01-08-2024 Basophils (Bld) [#/Vol] 0.1 10*3/uL 0.0-0.2 [facility] Basophils/100 WBC Auto (Bld) Ordered By: Erna Khan on 01-08-2024 Basophils/100 WBC (Bld) 0.8 % . [facility] Bilirubin Test strip Ql (U)O rdered By: Erna Khan on 01-08-2024 Bilirubin Ql (U) Negative Negative [facility] Bilirubin.direct [Mass/volum e] in Serum or PlasmaOrdered By: Erna Khan on 01-08-2024 Bilirubin.direct [Mass/Vol] 0.10 mg/dL 0.03-0.18 [facility] Bilirubin.total [Mass/volume ] in Serum or PlasmaOrdered By: Erna Khan on 01-08-2024 Bilirubin [Mass/Vol] 0.4 mg/dL 0.3-1.[address] [facility] Calcium [Mass/volume] in Ser um or PlasmaOrdered By: Erna Khan on 01-08-2024 Calcium [Mass/Vol] 9.8 mg/dL 8.6-10.3 [facility] Carbon dioxide, total [Moles /volume] in Serum or PlasmaOrdered By: Enra Khan on 01-08-2024 CO2 [Moles/Vol] 31.3 mmol/L 21.0-31.0 [facility] Chloride [Moles/volume] in S [place] or PlasmaOrdered By: Erna Kahn on 01-08-2024 Chloride [Moles/Vol] 102 mmol/L 98-[address] [facility] Color Auto (U)Ordered By: Marcelo Khan on 01-08-2024 Color (U) Yellow Yellow [facility] Complete Blood Count Auto Di ffon 01-08-2024 Basophils (Bld) [#/Vol] 0.1 10*3/uL Normal 0.0-0.2 [facility] Comment on above: Result Comment: PERF ORMED BY: [place] [address] PATHOLOGIST [employer] WORKER EDUARDO GRAYSON M.D. Performed By: #### C BC, LIPASE, HEPATIC, BMP #### [address] Basophils/100 WBC (Bld) 0.8 % Normal . [facility] Comment on above: Performed By: #### C BC, LIPASE, HEPATIC, BMP #### [facility] [address] Eosinophils (Bld) [#/Vol] 0.2 10*3/uL Normal 0.0-0.45 [facility] Comment on above: Performed By: #### C BC, LIPASE, HEPATIC, BMP #### [address] Eosinophils/100 WBC (Bld) 2.7 % Normal . [facility] Comment on above: Performed By: #### C BC, LIPASE, HEPATIC, BMP #### [address] Erythrocyte distribution width (RBC) [Ratio] 15.0 % High 12.0-14.8 [facility] Comment on above: Performed By: #### C BC, LIPASE, HEPATIC, BMP #### [address] Hematocrit (Bld) [Volume fraction] 37.4 % Low 38.8-50.0 [facility] Comment on above: Performed By: #### C BC, LIPASE, HEPATIC, BMP #### [address] Hemoglobin (Bld) [Mass/Vol] 12.7 g/dL Low 13.0-17.0 [facility] Comment on above: Performed By: #### C BC, LIPASE, HEPATIC, BMP #### [address] Lymphocytes (Bld) [#/Vol] 1.6 10*3/uL Normal 1.00-4.8 [facility] Comment on above: Performed By: #### C BC, LIPASE, HEPATIC, BMP #### [address] Lymphocytes/100 WBC (Bld) 20.6 % Normal . [facility] Comment on above: Performed By: #### C BC, LIPASE, HEPATIC, BMP #### [address] MCH (RBC) [Entitic mass] 29.1 pg Normal 27.5-35.2 [facility] Comment on above: Performed By: #### C BC, LIPASE, HEPATIC, BMP #### [address] MCV (RBC) [Entitic vol] 85.9 fL Normal 83.5-101 [facility] Comment on above: Performed By: #### C BC, LIPASE, HEPATIC, BMP #### [address] Mean Corpuscular HGB Conc 33.9 g/dL Normal 32.5-35.6 [facility] Comment on above: Performed By: #### C BC, LIPASE, HEPATIC, BMP #### [address] Monocytes (Bld) [#/Vol] 0.6 10*3/uL Normal 0.0-0.8 [facility] Comment on above: Performed By: #### C BC, LIPASE, HEPATIC, BMP #### [address] Monocytes/100 WBC (Bld) 15.23 % Normal 0.00-20.00 [facility] Comment on above: Performed By: #### C BC, LIPASE, HEPATIC, BMP #### [address] Monocytes/100 WBC (Bld) 7.7 % Normal . [facility] Comment on above: Performed By: #### C BC, LIPASE, HEPATIC, BMP #### [address] Neutrophils (Bld) [#/Vol] 5.2 10*3/uL Normal 1.8-7.7 [facility] Comment on above: Performed By: #### C BC, LIPASE, HEPATIC, BMP #### [place] [address] [place] Neutrophils/100 WBC (Bld) 68.2 % Normal . [facility] Comment on above: Performed By: #### C BC, LIPASE, HEPATIC, BMP #### [address] NRBC% 0.0 /100{WBC} Normal 0-0.5 [facility] Comment on above: Performed By: #### C BC, LIPASE, HEPATIC, BMP #### [address] Platelet mean volume (Bld) [Entitic vol] 7.6 fL Normal 6.6-10.1 [facility] Comment on above: Performed By: #### C BC, LIPASE, HEPATIC, BMP #### [facility] [address] [place] [address] [place] Platelets (Bld) [#/Vol] 219 10*3/uL Normal 150-450 [facility] Comment on above: Performed By: #### C BC, LIPASE, HEPATIC, BMP #### [facility] [address] [place] [address] [place] RBC (Bld) [#/Vol] 4.35 10*6/uL Normal 3.90-5.[address] [facility] Comment on above: Performed By: #### C BC, LIPASE, HEPATIC, BMP #### [facility] [address] [place] [id number] [place] WBC (Bld) [#/Vol] 7.7 10*3/uL Normal 4.1-10.5 [facility] Comment on above: Performed By: #### C BC, LIPASE, HEPATIC, BMP #### [address] Creatinine [Mass/volume] in Serum or PlasmaOrdered By: Erna Khan on 01-08-2024 Creatinine [Mass/Vol] 1.03 mg/dL 0.70-1.30 [facility] Dipstick and Microscopicon 0 01-08-2024 Appearance (U) Clear Normal Clear [facility] Comment on above: Order Comment: Name Collection Type:: Clean-Voided Midstream Performed By: #### A DDONUAPLUS #### [address] Bacteria,Urine None Seen Normal None Seen [facility] Comment on above: Order Comment: Name Collection Type:: Clean-Voided Midstream Performed By: #### A DDONUAPLUS #### [address] Bilirubin,Urine Negative Normal Negative [facility] Comment on above: Order Comment: Name Collection Type:: Clean-Voided Midstream Performed By: #### A DDONUAPLUS #### [facility] [address] [place] [address] [place] Color (U) Yellow Normal Yellow [facility] Comment on above: Order Comment: Name Collection Type:: Clean-Voided Midstream Performed By: #### A DDONUAPLUS #### [facility] [address] [place] [address] [place] Glucose Ql (U) Normal Normal Normal [facility] Comment on above: Order Comment: Name Collection Type:: Clean-Voided Midstream Performed By: #### A DDONUAPLUS #### [place] [address] [place] Hyaline Casts,Urine None Seen Normal 0-8 [facility] Comment on above: Order Comment: Name Collection Type:: Clean-Voided Midstream Result Comment: PERF ORMED BY: [place] [address] PATHOLOGIST [employer] WORKER EDUARDO GRAYSON M.D. Performed By: #### A DDONUAPLUS #### [place] [address] [place] Ketones Ql (U) Negative Normal Negative [facility] Comment on above: Order Comment: Name Collection Type:: Clean-Voided Midstream Performed By: #### A DDONUAPLUS #### [place] [address] [place] Leukocyte esterase Test strip Ql (U) Negative Normal Negative [facility] Comment on above: Order Comment: Name Collection Type:: Clean-Voided Midstream Performed By: #### A DDONUAPLUS #### [place] [address] [place] Nitrite,Urine Negative Normal Negative [facility] Comment on above: Order Comment: Name Collection Type:: Clean-Voided Midstream Performed By: #### A DDONUAPLUS #### [place] [address] [place] Occult Blood,Urine 1+ High Negative [facility] Comment on above: Order Comment: Name Collection Type:: Clean-Voided Midstream Result Comment: PERF ORMED BY: [place] [address] PATHOLOGIST [employer] WORKER EDUARDO GRAYSON M.D. Performed By: #### A DDONUAPLUS #### [address] pH (U) 5.5 [pH] Normal 5.0-9.0 [facility] Comment on above: Order Comment: Name Collection Type:: Clean-Voided Midstream Performed By: #### A DDONUAPLUS #### [address] Protein,Urine Negative Normal Negative [facility] Comment on above: Order Comment: Name Collection Type:: Clean-Voided Midstream Performed By: #### A DDONUAPLUS #### [address] RBC,Urine 3-4 Normal 0-4 [facility] Comment on above: Order Comment: Name Collection Type:: Clean-Voided Midstream Performed By: #### A DDONUAPLUS #### [address] Specificy [place],Urine 1.016 Normal 1.001-1.03 0 [facility] Comment on above: Order Comment: Name Collection Type:: Clean-Voided Midstream Performed By: #### A DDONUAPLUS #### [address] Squamous Epithelial Cell,Urine None Seen Normal 0-2 [facility] Comment on above: Order Comment: Name Collection Type:: Clean-Voided Midstream Performed By: #### A DDONUAPLUS #### [address] Urobilinogen,Urine Normal Normal Normal [facility] Comment on above: Order Comment: Name Collection Type:: Clean-Voided Midstream Performed By: #### A DDONUAPLUS #### [place] [address] [place] WBC LM.HPF (Urine sed) [#/Area] 0 /[HPF] Normal 0-4 [facility] Comment on above: Order Comment: Name Collection Type:: Clean-Voided Midstream Performed By: #### A DDONUAPLUS #### [facility] [address] Eosinophils Auto (Bld) [#/Vo l]Ordered By: Erna Khan on 01-08-2024 Eosinophils (Bld) [#/Vol] 0.2 10*3/uL 0.0-0.45 [facility] Eosinophils/100 WBC Auto (Bl d)Ordered By: Erna Khan on 01-08-2024 Eosinophils/100 WBC (Bld) 2.7 % . [facility] Erythrocyte distribution wid th Auto (RBC) [Ratio]Ordered By: Erna Khan on 01-08-2024 Erythrocyte distribution width (RBC) [Ratio] 15.0 % 12.0-14.8 [facility] Globulin Calc (S) [Mass/Vol] Ordered By: Erna Khan on 01-08-2024 Globulin (S) [Mass/Vol] 2.5 g/dL [facility] Glucose [Mass/volume] in Ser um or PlasmaOrdered By: Erna Khan on 01-08-2024 Glucose [Mass/Vol] 125 mg/dL 70-100 [facility] Comment on above: ADA recommended refe rence rangeRandom Glucose Reference Range is dependent on time and content of last meal. Glucose of more than 200 mg/dL in a nonstressed, ambulatory subject supports the diagnosis of Diabetes Mellitus. Hematocrit Auto (Bld) [Volum e fraction]Ordered By: Erna Khan on 01-08-2024 Hematocrit (Bld) [Volume fraction] 37.4 % 38.8-50.0 [facility] Hemoglobin [Mass/volume] in BloodOrdered By: Erna Khan on 01-08-2024 Hemoglobin (Bld) [Mass/Vol] 12.7 g/dL 13.0-17.0 [facility] Hepatic Panelon 01-08-2024 Albumin [Mass/Vol] 4.3 g/dL Normal 3.5-5.7 [facility] Comment on above: Performed By: #### C BC, LIPASE, HEPATIC, BMP #### [facility] [address] Albumin/Globulin [Mass ratio] 1.7 {ratio} Normal [facility] Comment on above: Performed By: #### C BC, LIPASE, HEPATIC, BMP #### [facility] [address] ALP [Catalytic activity/Vol] 39 U/L Normal 34-104 [facility] Comment on above: Performed By: #### C BC, LIPASE, HEPATIC, BMP #### [facility] [address] ALT [Catalytic activity/Vol] 15 U/L Normal 7-52 [facility] Comment on above: Performed By: #### C BC, LIPASE, HEPATIC, BMP #### [address] AST [Catalytic activity/Vol] 18 U/L Normal 13-39 [facility] Comment on above: Performed By: #### C BC, LIPASE, HEPATIC, BMP #### [address] Bilirubin [Mass/Vol] 0.4 mg/dL Normal 0.3-1.0 [facility] Comment on above: Performed By: #### C BC, LIPASE, HEPATIC, BMP #### [address] Bilirubin,Indirect 0.3 mg/dL Normal [facility] Comment on above: Performed By: #### C BC, LIPASE, HEPATIC, BMP #### [address] Bilirubin.indirect [Mass/Vol] 0.10 mg/dL Normal 0.03-0.18 [facility] Comment on above: Performed By: #### C BC, LIPASE, HEPATIC, BMP #### [address] Globulin (S) [Mass/Vol] 2.5 g/dL Normal [facility] Comment on above: Performed By: #### C BC, LIPASE, HEPATIC, BMP #### [address] [address] [place] Protein [Mass/Vol] 6.8 g/dL Normal 6.4-8.9 [facility] Comment on above: Performed By: #### C BC, LIPASE, HEPATIC, BMP #### [facility] [address] [place] [address] [place] INR in Platelet poor plasma by Coagulation assayOrdered By: Erna Khan on 01-08-2024 INR Coag (PPP) [Relative time] 1.1 {INR} [facility] Comment on above: INR Therapeutic Rang e A) Pre- and Peroperative OAT started two weeks before surgery. NOT HIP SURGERY: 1.5 - 2.5 HIP SURGERY: 2 - 3B) Primary and secondary prevention of venous THROMBOSIS: 2 - 3C) Active venous thrombosis, pulmonary embolismand prevention of recurrent venous thrombosis: 2 - 3D) Prevention of arterial thromboembolismincluding patients with mechanical heart valves: 3 - 4.5 Ketones Auto test strip (U) [Mass/Vol]Ordered By: Erna Khan on 01-08-2024 Ketones (U) [Mass/Vol] Negative Negative [facility] - UrinalysisOrder ed By: Erna Khan on 01-08-2024 Hyaline casts LM Ql (Urine sed) None seen [LPF] 0-8 [facility] Leukocytes [#/volume] correc john for nucleated erythrocytes in Blood by Automated counOrdered By: Erna Khan on 01-08-2024 WBC corrected for nucl RBC Auto (Bld) [#/Vol] 7.7 10*3/uL 4.1-10.5 [facility] Lipaseon 01-08-2024 Lipase [Catalytic activity/Vol] 22.0 U/L Normal 11.0-82.0 [facility] Comment on above: Result Comment: PERF ORMED BY: [place] [address] PATHOLOGIST [employer] WORKER EDUARDO GRAYSON M.D. Performed By: #### C BC, LIPASE, HEPATIC, BMP #### [facility] [address] [place] [id number] [place] Lipase [Enzymatic activity/v olume] in Serum or PlasmaOrdered By: Erna Khan on 01-08-2024 Lipase [Catalytic activity/Vol] 22.0 U/L 11.0-82.0 [facility] Lymphocytes Auto (Bld) [#/Vo l]Ordered By: Erna Khan on 01-08-2024 Lymphocytes (Bld) [#/Vol] 1.6 10*3/uL 1.00-4.8 [facility] Lymphocytes/100 WBC Auto (Bl d)Ordered By: Erna Khan on 01-08-2024 Lymphocytes/100 WBC (Bld) 20.6 % . [facility] MCH Auto (RBC) [Entitic mass ]Ordered By: Erna Khan on 01-08-2024 MCH (RBC) [Entitic mass] 29.1 pg 27.5-35.2 [facility] MCHC Auto (RBC) [Mass/Vol]Or dered By: Erna Khan on 01-08-2024 MCHC (RBC) [Mass/Vol] 33.9 g/dL 32.5-35.6 [facility] MCV Auto (RBC) [Entitic vol] Ordered By: Erna Khan on 01-08-2024 MCV (RBC) [Entitic vol] 85.9 fL 83.5-101 [facility] Monocyte distribution width [Entitic volume] in Blood by AutomatedOrdered By: Erna Khan on 01-08-2024 Monocyte distribution width Auto (Bld) [Entitic vol] 15.23 % 0.00-20.00 [facility] Monocytes Auto (Bld) [#/Vol] Ordered By: Erna Khan on 01-08-2024 Monocytes (Bld) [#/Vol] 0.6 10*3/uL 0.0-0.8 [facility] Monocytes/100 WBC Auto (Bld) Ordered By: Erna Khan on 01-08-2024 Monocytes/100 WBC (Bld) 7.7 % . [facility] Neutrophils Auto (Bld) [#/Vo l]Ordered By: Erna Khan on 01-08-2024 Neutrophils (Bld) [#/Vol] 5.2 10*3/uL 1.8-7.7 [facility] Neutrophils/100 WBC Auto (Bl d)Ordered By: Erna Khan on 01-08-2024 Neutrophils/100 WBC (Bld) 68.2 % . [facility] Nitrite Test strip Ql (U)Ord ered By: Erna Khan on 01-08-2024 Nitrite Ql (U) Negative Negative [facility] No Panel InformationOrdered By: Erna Khan on 01-08-2024 Estimated GFR (CKD-EPI) > 60.0 mL/Min [facility] Creatinine Clearance (Chem 148.77 [facility] Nucleated erythrocytes [Pres ence] in Blood by Automated countOrdered By: Erna Khan on 01-08-2024 Nucleated RBC Auto Ql (Bld) 0.0 /100{WBC} 0-0.5 [facility] Platelet mean volume Auto (B ld) [Entitic vol]Ordered By: Erna Khan on 01-08-2024 Platelet mean volume (Bld) [Entitic vol] 7.6 fL 6.6-10.1 [facility] Platelets Auto (Bld) [#/Vol] Ordered By: Erna Khan on 01-08-2024 Platelets (Bld) [#/Vol] 219 10*3/uL 150-450 [facility] Potassium [Moles/volume] in Serum or PlasmaOrdered By: Erna Khan on 01-08-2024 Potassium [Moles/Vol] 3.8 mmol/L 3.5-5.1 [facility] Protein Auto test strip (U) [Mass/Vol]Ordered By: Erna Khan on 01-08-2024 Protein (U) [Mass/Vol] Negative Negative [facility] Protein [Mass/volume] in Ser um or PlasmaOrdered By: Erna Khan on 01-08-2024 Protein [Mass/Vol] 6.8 g/dL 6.4-8.9 [facility] Prothrombin Time INRon 01-07 INR Coag (PPP) [Relative time] 1.1 {INR} Normal [facility] Comment on above: Result Comment: INR Therapeutic Range A) Pre- and Peroperative OAT started two weeks before surgery. NOT HIP SURGERY: 1.5 - 2.5 HIP SURGERY: 2 - 3 B) Primary and secondary prevention of venous THROMBOSIS: 2 - 3 C) Active venous thrombosis, pulmonary embolism and prevention of recurrent venous thrombosis: 2 - 3 D) Prevention of arterial thromboembolism including patients with mechanical heart valves: 3 - 4.5 PERFORMED BY: [place] [address] PATHOLOGIST PONY WORKER EDUARDO GRAYSON M.D. Performed By: #### P T #### [place] [id number] [facility] PT Coag (PPP) [Time] 13.0 s High 9.0-12.9 [facility] Comment on above: Result Comment: A matocrit value greater than 55% may lead to inaccurate results in coagulation testing. Patients having hematocrit values >55% require a special collection tube for coagulation studies. Please contact the laboratory at [phone] for redraw instructions. Performed By: #### P T #### [place] [id number] [facility] Prothrombin time (PT)Ordered By: Erna Khan on 01-08-2024 PT Coag (PPP) [Time] 13.0 s 9.0-12.[address] [facility] Comment on above: A hematocrit value g reater than 55% may lead to inaccurate results in coagulation testing. Patients having hematocrit values >55% require a special collection tube for coagulation studies. Please contact the laboratory at [phone] for redraw instructions. RBC Auto (Bld) [#/Vol]Ordere d By: Erna Khan on 01-08-2024 RBC (Bld) [#/Vol] 4.35 10*6/uL 3.90-5.60 [facility] Serum or plasma albumin/glob ulin mass ratioOrdered By: Erna Khan on 01-08-2024 Albumin/Globulin [Mass ratio] 1.7 {ratio} [facility] Serum or plasma anion gap de terminationOrdered By: Erna Khan on 01-08-2024 Anion gap [Moles/Vol] 10.5 mmol/L 6.0-15.0 [facility] Serum or plasma non-glucuron idated bilirubin measurement (mass/volume)Ordered By: Erna Khan on 01-08-2024 Bilirubin.indirect [Mass/Vol] 0.3 mg/dL [facility] Sodium [Moles/volume] in Ser um or PlasmaOrdered By: Erna Khan on 01-08-2024 Sodium [Moles/Vol] 140 mmol/L 136-145 [facility] Specific gravity Auto test s trip (U) [Rel density]Ordered By: Erna Khan on 01-08-2024 Specific gravity (U) [Rel density] 1.016 1.001-1.03 0 [facility] Squamous epithelial cells de tection in urine sediment by light microscopyOrdered By: Erna Khan on 01-08-2024 Epithelial cells.squamous LM Ql (Urine sed) None seen [HPF] 0-2 [facility] Urea nitrogen [Mass/volume] in Serum or PlasmaOrdered By: Erna Khan on 01-08-2024 Urea nitrogen [Mass/Vol] 18 mg/dL 7-25 [facility] Urine bacteria detection by automated methodOrdered By: Erna Khan on 01-08-2024 Bacteria Auto Ql (U) None seen None Seen [facility] Urine clarity by refractomet ry automatedOrdered By: Erna Khan on 01-08-2024 Clarity Refractometry automated (U) Clear Clear [facility] Urine glucose measurement by automated test strip (mass/volume)Ordered By: Erna Khan on 01-08-2024 Glucose Auto test strip (U) [Mass/Vol] Normal mg/dL Normal [facility] Urine hemoglobin detection b y automated test stripOrdered By: Erna Khan on 01-08-2024 Hemoglobin Auto test strip Ql (U) 1+ Negative [facility] Urine leukocyte esterase det ection by automated test stripOrdered By: Erna Khan on 01-08-2024 Leukocyte esterase Auto test strip Ql (U) Negative Negative [facility] Urobilinogen Auto test strip (U) [Mass/Vol]Ordered By: Erna Khan on 01-08-2024 Urobilinogen (U) [Mass/Vol] Normal mg/dL Normal [facility] WBC Auto (Bld) [#/Vol]Ordere d By: Erna Khan on 01-08-2024 WBC (Bld) [#/Vol] 7.7 10*3/uL 4.1-10.5 [facility] pH Auto test strip (U)Ordere d By: Erna Khan on 01-08-2024 pH (U) 5.5 [pH] 5.0-9.0 [facility] A1C HEMOGLOBINon 01-14-2023 HbA1c (Bld) [Mass fraction] 6.2 % [employer] Other Alanine aminotransferase [En zymatic activity/volume] in Serum or PlasmaOrdered By: Yumi Morgan on 01-14-2023 ALT [Catalytic activity/Vol] 19 U/L Normal 7-52 U/L [facility] Albumin [Mass/volume] in Ser um or Plasma by Bromocresol green (BCG) dye binding methoOrdered By: Yumi Morgan on 01-14-2023 Albumin BCG dye [Mass/Vol] 4.5 g/dL 3.5-5.7 [facility] Alkaline phosphatase [Enzyma tic activity/volume] in Serum or PlasmaOrdered By: Yumi Morgan on 01-14-2023 ALP [Catalytic activity/Vol] 51 U/L Normal 34-104 U/L [facility] Aspartate aminotransferase [ Enzymatic activity/volume] in Serum or PlasmaOrdered By: Yumi Morgan on 01-14-2023 AST [Catalytic activity/Vol] 16 U/L Normal 13-39 U/L [facility] Bilirubin.total [Mass/volume ] in Serum or PlasmaOrdered By: Yumi Morgan on 01-14-2023 Bilirubin [Mass/Vol] 0.6 mg/dL 0.3-1.[address] [facility] Calcium [Mass/volume] in Ser um or PlasmaOrdered By: Yumi Morgan on 01-14-2023 Calcium [Mass/Vol] 9.0 mg/dL 8.6-10.3 [facility] Carbon dioxide, total [Moles /volume] in Serum or PlasmaOrdered By: Yumi Morgan on 01-14-2023 CO2 [Moles/Vol] 29.9 mmol/L 21.0-31.0 [facility] Chloride [Moles/volume] in S shelley or PlasmaOrdered By: Yumi Morgan on 01-14-2023 Chloride [Moles/Vol] 102 mmol/L Normal 98-107 mmol/L [facility] Comprehensive Metabolic Pane km 01-14-2023 Albumin [Mass/Vol] 4.437201 g/dL Normal 3.5-5.7 g/dL [employer] Other Bilirubin [Mass/Vol] 0.8761289 mg/dL Normal 0.3- 1.0 mg/dL [employer] Other Calcium [Mass/Vol] 9.1303016 mg/dL Normal 8.6-10 .3 mg/dL [employer] Other CO2 [Moles/Vol] 29.57523695 mmol/L Normal 21.0-3 1.0 mmol/L [employer] Other Creatinine [Mass/Vol] 0.80563380 mg/dL Normal 0. 70-1.30 mg/dL [employer] Other GFR/1.73 sq M.predicted MDRD (S/P/Bld) [Vol rate/Area] mL/min/{1.73_m2} [employer] Other Potassium [Moles/Vol] 4.38626331 mmol/L Normal 3 .5-5.1 mmol/L [employer] Other Protein [Mass/Vol] 7.879515 g/dL Normal 6.4-8.9 g/dL [employer] Other Comprehensive Metabolic Panel 2.6 g/dL [employer] Other Creatinine [Mass/volume] in Serum or PlasmaOrdered By: Yumi Morgan on 01-14-2023 Creatinine [Mass/Vol] 0.90 mg/dL 0.70-1.30 [facility] Globulin Calc (S) [Mass/Vol] Ordered By: Yumi Morgan on 01-14-2023 Globulin (S) [Mass/Vol] 2.6 g/dL [facility] Glucose [Mass/volume] in Ser um or PlasmaOrdered By: Yumi Morgan on 01-14-2023 Glucose [Mass/Vol] 67 mg/dL Low 70-100 mg/dL [facility] Comment on above: ADA recommended refe rence rangeRandom Glucose Reference Range is dependent on time and content of last meal. Glucose of more than 200 mg/dL in a nonstressed, ambulatory subject supports the diagnosis of Diabetes Mellitus. HbA1c (Bld) [Mass fraction]o n 01-14-2023 A1C HEMOGLOBIN [employer] Other No Panel InformationOrdered By: Yumi Morgan on 01-14-2023 Estimated GFR (CKD-EPI) > 60.0 mL/Min [facility] Creatinine Clearance (Chem N/A [facility] Potassium [Moles/volume] in Serum or PlasmaOrdered By: Yumi Morgan on 01-14-2023 Potassium [Moles/Vol] 4.0 mmol/L 3.5-5.1 [facility] Protein [Mass/volume] in Ser um or PlasmaOrdered By: Yumi Morgan on 01-14-2023 Protein [Mass/Vol] 7.1 g/dL 6.4-8.9 [facility] Serum or plasma albumin/glob ulin mass ratioOrdered By: Yumi Morgan on 01-14-2023 Albumin/Globulin [Mass ratio] 1.7 {ratio} [facility] Serum or plasma anion gap de terminationOrdered By: Yumi Morgan on 01-14-2023 Anion gap [Moles/Vol] 11.1 mmol/L 6.0-15.0 [facility] Sodium [Moles/volume] in Ser um or PlasmaOrdered By: Yumi Morgan on 01-14-2023 Sodium [Moles/Vol] 139 mmol/L Normal 136-145 mmol/L [facility] Thyroid Stim Hormone w/Rflxo n 01-14-2023 Thyroid Stim Hormone w/Rflx 2.26 u[iU]/mL Normal 0.45-5.33 u[iU]/mL [employer] Other Thyrotropin [Units/volume] i n Serum or PlasmaOrdered By: Yumi Morgan on 01-14-2023 TSH Qn 2.26 m[IU]/L 0.45-5.33 [facility] Urea nitrogen [Mass/volume] in Serum or PlasmaOrdered By: Yumi Morgan on 01-14-2023 Urea nitrogen [Mass/Vol] 14 mg/dL Normal 7-25 mg/dL [facility] Vitamin D 25 Hydroxy Totalon 01-14-2023 Vitamin D 25 Hydroxy Total 35.0 ng/mL Normal 30-100 ng/mL [employer] Other Vitamin D+Metabolites [Mass/ volume] in Serum or PlasmaOrdered By: Yumi Morgan on 01-14-2023 Vitamin D+Metabolites [Mass/Vol] 35.0 ng/mL 30-100 [facility] Comment on above: VITAMIN D STATUS 25( [place])VITAMIN D RANGE (ng/mL) Deficient <20 Insufficient 20 to <30Sufficient 30 to 100Reference: Stephen MF,Christopher COLBERT, Trang HILLS, et al. Evaluation,treatment, and prevention of vitamin D deficiency; an Endocrine Society clinical practice guideline. JCEM. 2010; 96(7):1911-30. Vitamin B12on 01-11-2022 Cobalamin (Vitamin B12) [Mass/Vol] 319 pg/mL Normal 180-914 pg/mL [employer] Other Vitamin D 25 Hydroxy Totalon 01-11-2022 Vitamin D 25 Hydroxy Total 14.3 ng/mL Low 30-100 ng/mL [employer] Other Operative Reporton Operative Report MR#: [id number] [facility] Pt. Name: Rusty Condon Room #: 0C Discharge Date: Birthdate: 1975 OPERATIVE REPORT DATE OF SURGERY: 05/12/2021 SURGEON: Andrea Campuzano M.D. PREOPERATIVE DIAGNOSIS: Right knee medial meniscus tear. POSTOPERATIVE DIAGNOSES: 1. Right knee medial meniscus tear. 2. Right knee full-thickness chondral tear of the medial femoral condyle. AGRICULTURAL EXTENSION OFFICER: Zane Osei, medical student level 4. ANESTHESIA: General. PROCEDURES PERFORMED: 1. Right knee arthroscopy with partial medial meniscectomy. 2. Right knee arthroscopy with microfracture of the medial femoral condyle. INDICATIONS: The patient is a 45-year-old man, who had a slip on uneven surface back in January 2021. He had difficulty bearing weight and immediate swelling. An MRI demonstrated a complex tear of the posterior horn of the medial meniscus. He has tried physical therapy. He has tried anti-inflammatories. He continues to have pain. I offered to him a right knee arthroscopy with partial medial meniscectomy. We also discussed performing any other indicated procedures. Intraoperatively, he had a full-thickness well shouldered lesion of the medial femoral condyle measuring 5 x 10 mm. I felt that this would be amenable to microfracture, so we performed microfracture at the same time. Risks and benefits were discussed preoperatively. Informed consent was obtained in the clinic and he was scheduled for the procedure on 05/12/2021. PROCEDURE IN DETAIL: After confirmation and marking of the correct surgical extremity in the preoperative holding area, the patient was brought back to the operating suite and placed in the supine position. All pressure points were adequately padded. General endotracheal anesthesia was smoothly induced. Preoperative antibiotics were administered. The right lower extremity was prepped and draped in a sterile fashion. After observation of a surgical time-out procedure using 2 separate patient identifiers, we began with the case. We first started with infiltration of the knee itself and the proposed incisions with 20 mL of 1% lidocaine with epinephrine. We then created standard arthroscopy portals and began with a diagnostic arthroscopy. We first noted there was very significant synovitis and inflammation in the knee. This was all cleared out from all 3 compartments. The medial compartment in addition to the complex tear of the posterior horn of the medial meniscus demonstrated a full-thickness chondral tear of the medial femoral condyle. I 1st addressed the medial meniscus by trimming and stabilizing the lesion by removing all unstable portions. This was an inner 3rd tear, but there was 1 component that was radial that went deep to the periphery. I then stabilized the cartilage lesions, scraped off the calcified cartilage and performed microfracture using the [place] technique. We did obtain good bleeding bone. ACL and PCL were intact. The lateral compartment demonstrated no chondral or meniscal lesions. Patellofemoral compartment was free of any defects. At this point, all instruments were removed and the knee was drained of fluid. The portal incisions were closed using simple Steri-Strips. A sterile compressive wrap was applied. The patient was then awakened, extubated, and brought back to the PACU in stable condition. I was present, scrubbed, and actively participated through all vargas portions of the surgery. ESTIMATED BLOOD LOSS: Minimal. COMPLICATIONS: None. DISPOSITION: To the PACU in stable condition. POSTOPERATIVE PLAN: I will use aspirin for DVT prophylaxis. I have asked the patient to be nonweightbearing over the next 6 weeks to protect the microfracture. I will see him back in 10-14 days' time for suture removal and initiation of physical therapy. Electronically Signed by: Andrea Campuzano M.D. 05/15/2021 09:14 A Andrea Campuzano M.D. Date Dict: 05/12/2021/11:13 A/Andrea Campuzano M.D. Date Trans: 05/12/2021 12:36 P/mmo [id number] cc: Yumi Morgan, [address] [place] [address] Normal [facility] POC GLUCOSE LABon 05-12-2021 Glucose [Mass/Vol] 127 mg/dL High 70-100 [facility] Comment on above: Performed By: #### [id number] #### [facility] [address] [facility]. [address] Glucose [Mass/Vol] 115 mg/dL High 70-100 [facility] Comment on above: Performed By: #### [id number] #### [facility] [address] [facility]. [address] Automated basophil %on 12-11 Basophils/100 WBC (Bld) 0.8 % [facility] Automated basophil counton 0 12-11-2020 Basophils (Bld) [#/Vol] 0.1 10*3/uL 0.0-0.2 [facility] Automated blood lymphocyte c ount (number/volume)on 12-11-2020 Lymphocytes (Bld) [#/Vol] 2.3 10*3/uL 1.00-4.8 [facility] Automated blood lymphocyte c ount as percentage of total leukocyteson 12-11-2020 Lymphocytes/100 WBC (Bld) 32.6 % [facility] Automated blood monocyte cou nton 12-11-2020 Monocytes (Bld) [#/Vol] 0.6 10*3/uL 0.0-0.8 [facility] Automated blood platelet cou nt (count/volume)on 12-11-2020 Platelets (Bld) [#/Vol] 208 10*3/uL 150-450 [facility] Automated blood platelet pilar n volume measurementon 12-11-2020 Platelet mean volume (Bld) [Entitic vol] 8.0 fL 6.6-10.1 [facility] Automated eosinophil %on Eosinophils/100 WBC (Bld) 3.0 % [facility] Automated eosinophil counton 12-11-2020 Eosinophils (Bld) [#/Vol] 0.2 10*3/uL 0.0-0.45 [facility] Automated erythrocyte distri bution width ratioon 12-11-2020 Erythrocyte distribution width (RBC) [Ratio] 14.0 % 12.0-14.8 [facility] Automated erythrocyte mean c orpuscular hemoglobin (mass per erythrocyte)on 12-11-2020 MCH (RBC) [Entitic mass] 29.4 pg 27.5-35.2 [facility] Automated erythrocyte mean c orpuscular hemoglobin concentration measurement (mass/volon 12-11-2020 MCHC (RBC) [Mass/Vol] 34.1 g/dL 32.5-35.6 [facility] Automated erythrocyte mean c orpuscular volumeon 12-11-2020 MCV (RBC) [Entitic vol] 86.4 fL 83.5-101 [facility] Automated erythrocytes count in urine sediment (number/area)on 12-11-2020 RBC Auto (Urine sed) [#/Area] 50-100 [HPF] [facility] Automated leukocytes count i n urine sediment (number/area)on 12-11-2020 WBC Auto (Urine sed) [#/Area] 1-2 [HPF] [facility] Automated monocyte %on 12-11 Monocytes/100 WBC (Bld) 9.3 % [facility] Automated neutrophil %on Neutrophils/100 WBC (Bld) 54.3 % [facility] Automated urine color determ inationon 12-11-2020 Color (U) Yellow Yellow [facility] Bilirubin Test strip Ql (U)o n 12-11-2020 Bilirubin Ql (U) Negative Negative [facility] Blood erythrocytes automated count (number/volume)on 12-11-2020 RBC (Bld) [#/Vol] 5.09 10*6/uL 3.90-5.60 [facility] Blood hemoglobin measurement (mass/volume)on 12-11-2020 Hemoglobin (Bld) [Mass/Vol] 15.0 g/dL 13.0-17.0 [facility] Blood leukocytes automated c ount (number/volume)on 12-11-2020 WBC (Bld) [#/Vol] 6.9 10*3/uL 4.5-11.0 [facility] Blood neutrophil count by au tomated method (number/volume)on 12-11-2020 Neutrophils (Bld) [#/Vol] 3.8 10*3/uL 1.8-7.7 [facility] Body fluid albumin measureme nt (mass/volume)on 12-11-2020 Albumin (Body fld) [Mass/Vol] 4.3 g/dL 3.2-5.5 [facility] Direct bilirubin measurement on 12-11-2020 Bilirubin.direct [Mass/Vol] 0.1 mg/dL 0.0-0.4 [facility] Estimated glomerular filtrat ion rate (GFR) non- Americanon 12-11-2020 GFR/1.73 sq M predicted among non-blacks MDRD (S/P/Bld) [Vol rate/Area] > 60 mL/Min [facility] Hematocrit [Volume Fraction] of Blood by Automated counton 12-11-2020 Hematocrit (Bld) [Volume fraction] 44.0 % 38.8-50.0 [facility] Nitrite Test strip Ql (U)on 12-11-2020 Nitrite Ql (U) Negative Negative [facility] No Panel Informationon 12-11 Estimated GFR () > 60 mL/Min [facility] Comment on above: GFR estimated refere nce range: According to KDOQI guidelines, <60 ml/min/1.73m2 is sufficient to diagnose a patient with chronic kidney disease. Otheron 12-11-2020 GFR/1.73 sq M.predicted MDRD (S/P/Bld) [Vol rate/Area] > 60 mL/Min [facility] Comment on above: GFR estimated refere nce range: According to KDOQI guidelines, <60 ml/min/1.73m2 is sufficient to diagnose a patient with chronic kidney disease. Nucleated RBC/100 WBC (Bld) [Ratio] 0.2 % 0-0.5 [facility] Creatinine Clearance (Chem 133.32 [facility] Protein [Mass/volume] in Ser um or Plasmaon 12-11-2020 Protein [Mass/Vol] 7.0 g/dL 6.1-7.9 [facility] Serum globulin measurement b y calculation (mass/volume)on 12-11-2020 Globulin (S) [Mass/Vol] 2.7 g/dL [facility] Serum or plasma alanine garcia otransferase measurement without P-5'-P (enzymatic activion 12-11-2020 ALT No additional P-5'-P [Catalytic activity/Vol] 29 U/L 10-60 [facility] Serum or plasma albumin/glob ulin mass ratioon 12-11-2020 Albumin/Globulin [Mass ratio] 1.6 {ratio} [facility] Serum or plasma alkaline renetta sphatase measurement (enzymatic activity/volume)on 12-11-2020 ALP [Catalytic activity/Vol] 46 U/L 32-92 [facility] Serum or plasma aspartate am inotransferase measurement (enzymatic activity/volume)on 12-11-2020 AST [Catalytic activity/Vol] 23 U/L 10-42 [facility] Serum or plasma calcium florian urement (mass/volume)on 12-11-2020 Calcium [Mass/Vol] 8.8 mg/dL 8.2-10.2 [facility] Serum or plasma chloride pilar surement (moles/volume)on 12-11-2020 Chloride [Moles/Vol] 100 mmol/L 95-114 [facility] Serum or plasma creatinine m easurement with calculation of estimated glomerular filtron 12-11-2020 Creatinine [Mass/Vol] 1.05 mg/dL 0.64-1.27 [facility] Serum or plasma glucose florian urement (mass/volume)on 12-11-2020 Glucose [Mass/Vol] 143 mg/dL 70-100 [facility] Comment on above: ADA recommended refe rence rangeRandom Glucose Reference Range is dependent on time and content of last meal. Glucose of more than 200 mg/dL in a nonstressed, ambulatory subject supports the diagnosis of Diabetes Mellitus. Serum or plasma non-glucuron idated bilirubin measurement (mass/volume)on 12-11-2020 Bilirubin.indirect [Mass/Vol] 0.6 mg/dL [facility] Serum or plasma potassium me asurement (moles/volume)on 12-11-2020 Potassium [Moles/Vol] 3.7 mmol/L 3.5-5.1 [facility] Serum or plasma sodium measu rement (moles/volume)on 12-11-2020 Sodium [Moles/Vol] 135 mmol/L 136-146 [facility] Serum or plasma total biliru bin measurement (mass/volume)on 12-11-2020 Bilirubin [Mass/Vol] 0.7 mg/dL 0.3-1.2 [facility] Serum or plasma total carbon dioxide measurement (moles/volume)on 12-11-2020 CO2 [Moles/Vol] 23.0 mmol/L 22.0-30.0 [facility] Serum or plasma urea nitroge n measurement (mass/volume)on 12-11-2020 Urea nitrogen [Mass/Vol] 15 mg/dL 9- [facility] Specific gravity of Urine by Automated test stripon 12-11-2020 Specific gravity (U) [Rel density] 1.027 1.001-1.03 0 [facility] Squamous epithelial cells de tection in urine sediment by light microscopyon 12-11-2020 Epithelial cells.squamous LM Ql (Urine sed) None seen [HPF] [facility] Urinalysison 12-11-2020 Hyaline casts LM Ql (Urine sed) 0-8 [LPF] [facility] Urine bacteria detection by automated methodon 12-11-2020 Bacteria Auto Ql (U) None seen None Seen [facility] Urine clarity by refractomet ry automatedon 12-11-2020 Clarity Refractometry automated (U) Clear Clear [facility] Urine glucose measurement by automated test strip (mass/volume)on 12-11-2020 Glucose Auto test strip (U) [Mass/Vol] Normal mg/dL Normal [facility] Urine hemoglobin detection b y automated test stripon 12-11-2020 Hemoglobin Auto test strip Ql (U) 3+ Negative [facility] Urine ketones measurement by automated test strip (mass/volume)on 12-11-2020 Ketones (U) [Mass/Vol] Trace Negative [facility] Urine leukocyte esterase det ection by automated test stripon 12-11-2020 Leukocyte esterase Auto test strip Ql (U) Negative Negative [facility] Leukocyte esterase Auto test strip Ql (U) Negative Negative [facility] Urine nitrite detection by t est stripon 12-11-2020 Nitrite Ql (U) Negative Negative [facility] Urine pH measurement by auto mated test stripon 12-11-2020 pH (U) 5.0 [pH] 5.0-9.0 [facility] Urine protein measurement by automated test strip (mass/volume)on 12-11-2020 Protein (U) [Mass/Vol] 30 mg/dL Negative [facility] Urine total bilirubin detect ion by test stripon 12-11-2020 Bilirubin Ql (U) Negative Negative [facility] Urine urobilinogen measureme nt by automated test strip (mass/volume)on 12-11-2020 Urobilinogen (U) [Mass/Vol] Normal mg/dL Normal [facility] Serum or plasma thyroid stim ulating hormone (TSH) measurement by high sensitivity meton 09-01-2020 TSH Qn 2.85 u[iU]/mL 0.45-5.33 [facility] Social History Date Type Detail Facility Start: 12-11-2020 End: 02-03-2024 Tobacco smoking status NHIS Ex-smoker (finding) [facility] Start: 07-10-2019 End: 10-31-2020 Tobacco smoking status NHIS Never smoked tobacco (finding) [facility] Start: 1975 Sex Assigned At Male F [facility] End: 2009 Sex Assigned At [facility] Tobacco smoking status Never [facility] Vital Signs Date Time Vital Sign Value Performing Clinician Facility 02-03-2024 12:17-0400 Blood Pressure Location August CHÁVEZ [facility] 02-03-2024 12:17-0400 Diastolic blood pressure 86 mm[Hg] August CHÁVEZ [facility] 02-03-2024 12:17-0400 Heart rate 77 /min August CHÁVEZ [facility] 02-03-2024 12:17-0400 Respiratory rate 16 /min August CHÁVEZ [facility] 02-03-2024 12:17-0400 Systolic blood pressure 135 mm[Hg] August CHÁVEZ [facility] 01-10-2024 08:28-0400 Blood Pressure Location August CHÁVEZ [facility] 01-10-2024 08:28-0400 Body temperature 98.6 [degF] August CHÁVEZ [facility] 01-10-2024 08:28-0400 Diastolic blood pressure 87 mm[Hg] August CHÁVEZ [facility] 01-10-2024 08:28-0400 Heart rate 80 /min August CHÁVEZ [facility] 01-10-2024 08:28-0400 Respiratory rate 16 /min August CHÁVEZ [facility] 01-10-2024 08:28-0400 Systolic blood pressure 138 mm[Hg] August CHÁVEZ [facility] 01-09-2024 08:59-0400 Body height 177.8 cm DO Yumi Whittmer Work Phone: [facility] 01-09-2024 08:59-0400 Body mass index (BMI) [Ratio] 60.8 kg/m2 DO Yumi Daniella Work Phone: [facility] 01-09-2024 08:59-0400 Body weight 192.32 kg DO Yumi Whittmer Work Phone: [facility] 01-09-2024 08:59-0400 Diastolic blood pressure 88 mm[Hg] DO Yumi Daniella Work Phone: [facility] 01-09-2024 08:59-0400 Heart rate 98 /min DO Yumi Daniella Work Phone: [facility] 01-09-2024 08:59-0400 SaO2% (BldA) [Mass fraction] 95 % DO Yumi Daniella Work Phone: [facility] 01-09-2024 08:59-0400 Systolic blood pressure 144 mm[Hg] DO Yumi Daniella Work Phone: [facility] 01-08-2024 22:24-0400 Heart rate 94 /min DO Yumi Daniella Work Phone: [facility] 01-08-2024 22:18-0400 Diastolic blood pressure 96 mm[Hg] DO Yumi Daniella Work Phone: [facility] 01-08-2024 22:18-0400 Respiratory rate 18 /min DO Yumi Morgan Work Phone: [facility] 01-08-2024 22:18-0400 SaO2% (BldA) [Mass fraction] 96 % DO Yumi Morgan Work Phone: [facility] 01-08-2024 22:18-0400 Systolic blood pressure 176 mm[Hg] DO Yumi Morgan Work Phone: [facility] 01-08-2024 20:31-0400 Body temperature 98.2 [degF] DO Yumi Morgan Work Phone: [facility] 01-08-2024 20:30-0400 Body height 177.8 cm DO Yumi Morgan Work Phone: [facility] 01-08-2024 20:30-0400 Body weight 193.6 kg DO Yumi Morgan Work Phone: [facility] 09-30-2023 10:00-0500 Body height 177.8 cm Yumi Morgan Other [employer] Other 09-30-2023 10:00-0500 Body mass index (BMI) [Ratio] 59.83 kg/m2 Yumi Morgan Other [employer] Other 09-30-2023 10:00-0500 Body weight 189.15 kg Yumi Morgan Other [employer] Other 09-30-2023 10:00-0500 Diastolic blood pressure 90 mm[Hg] Yumi Morgan Other [employer] Other 09-30-2023 10:00-0500 Respiratory rate 18 /min Yumi Morgan Other [employer] Other 09-30-2023 10:00-0500 SaO2% (BldA) [Mass fraction] 99 % Yumi Morgan Other [employer] Other 09-30-2023 10:00-0500 Systolic blood pressure 140 mm[Hg] Yumi Morgan Other [employer] Other 05-30-2023 11:15-0400 Body height 177.8 cm Yumi Morgan Other [employer] Other 05-30-2023 11:15-0400 Body mass index (BMI) [Ratio] 58.26 kg/m2 Yumi Morgan Other [employer] Other 05-30-2023 11:15-0400 Body weight 184.21 kg Yumi Morgan Other [employer] Other 05-30-2023 11:15-0400 Diastolic blood pressure 88 mm[Hg] Yumi Morgan Other [employer] Other 05-30-2023 11:15-0400 Respiratory rate 18 /min Yumi Morgan Other [employer] Other 05-30-2023 11:15-0400 SaO2% (BldA) [Mass fraction] 98 % Yumi Morgan Other [employer] Other 05-30-2023 11:15-0400 Systolic blood pressure 138 mm[Hg] Yumi Morgan Other [employer] Other 01-14-2023 12:00-0400 Body height 177.8 cm Yumi Morgan Other [employer] Other 01-14-2023 12:00-0400 Body mass index (BMI) [Ratio] 59.25 kg/m2 Yumi Whittmer Other [employer] Other 01-14-2023 12:00-0400 Body temperature 97.2 [degF] Yumi Daniella Other [employer] Other 01-14-2023 12:00-0400 Body weight 187.34 kg Yumi Whittmer Other [employer] Other 01-14-2023 12:00-0400 Respiratory rate 18 /min Yumi Whittmer Other [employer] Other 01-14-2023 12:00-0400 SaO2% (BldA) [Mass fraction] 97 % Yumi Daniella Other [employer] Other 07-19-2022 10:30-0400 Body height 177.8 cm Yumi Daniella Other [employer] Other 07-19-2022 10:30-0400 Body mass index (BMI) [Ratio] 57.76 kg/m2 Yumi Daniella Other [employer] Other 07-19-2022 10:30-0400 Body weight 182.62 kg Yumi Daniella Other [employer] Other 07-19-2022 10:30-0400 Diastolic blood pressure 88 mm[Hg] Yumi Morgan Other [employer] Other 07-19-2022 10:30-0400 Respiratory rate 18 /min Yumi Morgan Other [employer] Other 07-19-2022 10:30-0400 SaO2% (BldA) [Mass fraction] 98 % Yumi Morgan Other [employer] Other 07-19-2022 10:30-0400 Systolic blood pressure 32 mm[Hg] Yumi Morgan Other [employer] Other 01-11-2022 11:30-0400 Body height 177.8 cm Yumi Morgan Other [employer] Other 01-11-2022 11:30-0400 Body mass index (BMI) [Ratio] 56.47 kg/m2 Yumi Morgan Other [employer] Other 01-11-2022 11:30-0400 Body temperature 97.2 [degF] Yumi Morgan Other [employer] Other 01-11-2022 11:30-0400 Body weight 178.54 kg Yumi Morgan Other [employer] Other 01-11-2022 11:30-0400 Diastolic blood pressure 98 mm[Hg] Yumi Morgan Other [employer] Other 01-11-2022 11:30-0400 Respiratory rate 18 /min Yumi Morgan Other [employer] Other 01-11-2022 11:30-0400 SaO2% (BldA) [Mass fraction] 98 % Yumi Morgan Other [employer] Other 01-11-2022 11:30-0400 Systolic blood pressure 136 mm[Hg] Yumi Morgan Other [employer] Other 10-26-2021 14:15-0500 Body height 177.8 cm Andrea Staton Other [employer] Other 10-26-2021 14:15-0500 Body mass index (BMI) [Ratio] 55.81 kg/m2 Andrea Shemar Other [employer] Other 10-26-2021 14:15-0500 Body temperature 95.5 [degF] Andrea Shemar Other [employer] Other 10-26-2021 14:15-0500 Body weight 176.45 kg Andrea Shemar Other [employer] Other 10-26-2021 14:15-0500 Diastolic blood pressure 84 mm[Hg] Andrea Shemar Other [employer] Other 10-26-2021 14:15-0500 SaO2% (BldA) [Mass fraction] 98 % Andrea Shemar Other [employer] Other 10-26-2021 14:15-0500 Systolic blood pressure 134 mm[Hg] Andrea Shemar Other [employer] Other 09-28-2021 10:00-0500 Body height 177.8 cm Yumi Morgan Other [employer] Other 09-28-2021 10:00-0500 Body mass index (BMI) [Ratio] 55.34 kg/m2 Yumi Morgan Other [employer] Other 09-28-2021 10:00-0500 Body temperature 97.6 [degF] Yumi Morgan Other [employer] Other 09-28-2021 10:00-0500 Body weight 174.95 kg Yumi Morgan Other [employer] Other 09-28-2021 10:00-0500 Diastolic blood pressure 92 mm[Hg] Yumi Morgan Other [employer] Other 09-28-2021 10:00-0500 Respiratory rate 18 /min Yumi Morgan Other [employer] Other 09-28-2021 10:00-0500 SaO2% (BldA) [Mass fraction] 99 % Yumi Morgan Other [employer] Other 09-28-2021 10:00-0500 Systolic blood pressure 142 mm[Hg] Yumi Morgan Other [employer] Other 09-04-2021 09:00-0500 Body height 177.8 cm Yumi Morgan Other [employer] Other 09-04-2021 09:00-0500 Body mass index (BMI) [Ratio] 56.15 kg/m2 Yumi Morgan Other [employer] Other 09-04-2021 09:00-0500 Body temperature 98.4 [degF] Yumi Morgan Other [employer] Other 09-04-2021 09:00-0500 Body weight 177.54 kg Yumi Morgan Other [employer] Other 09-04-2021 09:00-0500 Diastolic blood pressure 84 mm[Hg] Yumi Morgan Other [employer] Other 09-04-2021 09:00-0500 Respiratory rate 18 /min Yumi Daniella Other [employer] Other 09-04-2021 09:00-0500 SaO2% (BldA) [Mass fraction] 97 % Yumicata Morgan Other [employer] Other 09-04-2021 09:00-0500 Systolic blood pressure 138 mm[Hg] Yumi Daniella Other [employer] Other 06-22-2021 10:00-0400 Body height 177.8 cm Yumi Daniella Other [employer] Other 06-22-2021 10:00-0400 Body mass index (BMI) [Ratio] 56.01 kg/m2 Yumi Daniella Other [employer] Other 06-22-2021 10:00-0400 Body temperature 97.9 [degF] Yumi Daniella Other [employer] Other 06-22-2021 10:00-0400 Body weight 177.09 kg Yumi Daniella Other [employer] Other 06-22-2021 10:00-0400 Diastolic blood pressure 82 mm[Hg] Yumi Morgan Other [employer] Other 06-22-2021 10:00-0400 Respiratory rate 18 /min Yumi Morgan Other [employer] Other 06-22-2021 10:00-0400 SaO2% (BldA) [Mass fraction] 96 % Yumi Morgan Other [employer] [facility] [employer] Other 06-22-2021 10:00-0400 Systolic blood pressure 128 mm[Hg] Yumi Morgan Other [employer] Other 12-17-2020 11:12-0400 BMI (Body Mass Index) 50.5 kg/m2 Yumi Morgan [facility] 12-17-2020 11:12-0400 Body Temperature 97 [degF] Yumi Morgan [facility] 12-17-2020 11:12-0400 Body weight 160 kg Yumi Morgan [facility] 12-17-2020 11:12-0400 BP Diastolic 95 mm[Hg] Yumi Morgan [facility] 12-17-2020 11:12-0400 BP Systolic 170 mm[Hg] Yumicata Morgan [facility] 12-17-2020 11:12-0400 Height 177.8 cm Yumi Morgan [facility] 12-17-2020 11:12-0400 Pulse (Heart Rate) 100 /min Yumi Morgan [facility] 12-17-2020 11:12-0400 Pulse Oximetry 98 % Yumicata Morgan [facility] 12-17-2020 11:12-0400 Respiratory Rate 20 /min Yumi Morgan [facility] 12-17-2020 11:12-0400 SaO2% (BldA) [Mass fraction] 98 % Yumi Morgan Work Phone: [facility] 12-11-2020 12:28-0400 BP Diastolic 81 mm[Hg] Yumi Morgan [facility] 12-11-2020 12:28-0400 BP Systolic 158 mm[Hg] Yumicata Morgan [facility] 12-11-2020 12:28-0400 Pulse (Heart Rate) 81 /min Yumi Morgan [facility] 12-11-2020 12:28-0400 Pulse Oximetry 99 % Yumi Morgan [facility] 12-11-2020 12:28-0400 Respiratory Rate 18 /min Yumi Morgan [facility] 12-11-2020 12:28-0400 SaO2% (BldA) [Mass fraction] 99 % Yumi Morgan Work Phone: [facility] 12-11-2020 10:42-0400 Body Temperature 98.4 [degF] Yumi Morgan [facility] 12-11-2020 10:41-0400 BMI (Body Mass Index) 52.7 kg/m2 Yumicata Morgan [facility] 12-11-2020 10:41-0400 Body weight 162 kg Yumicata Morgan [facility] 12-11-2020 10:41-0400 Height 175.26 cm Yumi Daniella [facility] 10-31-2020 10:02-0500 BMI (Body Mass Index) 51.7 kg/m2 Yumi Morgan [facility] 10-31-2020 10:02-0500 Body Temperature 97.1 [degF] Yumi Morgan [facility] 10-31-2020 10:02-0500 Body weight 163.7 kg Yumi Morgan [facility] 10-31-2020 10:02-0500 BP Diastolic 95 mm[Hg] Yumi Daniella [facility] 10-31-2020 10:02-0500 BP Systolic 161 mm[Hg] Yumi Daniella [facility] 10-31-2020 10:02-0500 Height 177.8 cm Yumi Morgan [facility] 10-31-2020 10:02-0500 Pulse (Heart Rate) 86 /min Yumi Morgan [facility] 10-31-2020 10:02-0500 Pulse Oximetry 97 % Yumi Morgan [facility] 10-31-2020 10:02-0500 Respiratory Rate 18 /[facility] 10-31-2020 09:02-0500 SaO2% (BldA) [Mass fraction] 97 % Yumi Morgan Work Phone: [facility] Functional Status Date Assessment Result Facility 02-03-2024 Functional Status N/A [facility] 01-10-2024 Functional Status N/A [facility] Clinical Notes 06-22-2021 to 02-03-2024 Note Date & Type Note Facility 02-03-2024 Hospital Discharge instructions Patient Education 02/03/2024 13:09:42 Kidney Stones Kidney Stones Kidney stones are solid, rock-like deposits that form inside of the kidneys. The kidneys are a pair of organs that make urine. A kidney stone may form in a kidney and move into other parts of the urinary tract, including the tubes that connect the kidneys to the bladder (ureters), the bladder, and the tube that carries urine out of the body (urethra). As the stone moves through these areas, it can cause intense pain and block the flow of urine. Kidney stones are created when high levels of certain minerals are found in the urine. The stones are usually passed out of the body through urination, but in some cases, medical treatment may be needed to remove them. What are the causes? Kidney stones may be caused by: A condition in which certain glands produce too much parathyroid hormone (primary hyperparathyroidism), which causes too much calcium buildup in the blood. A buildup of uric acid crystals in the bladder (hyperuricosuria). Uric acid is a chemical that the body produces when you eat certain foods. It usually leaves the body in the urine. Narrowing (stricture) of one or both of the ureters. A kidney blockage that is present at (congenital obstruction). Past surgery on the kidney or the ureters. What increases the risk? The following factors may make you more likely to develop this condition: Having had a kidney stone in the past. Having a family history of kidney stones. Not drinking enough water. Eating a diet that is high in protein, salt (sodium), or sugar. Being overweight or obese. What are the signs or symptoms? Symptoms of a kidney stone may include: Pain in the side of the abdomen, right below the ribs (flank pain). Pain usually spreads (radiates) to the groin. Needing to urinate often or urgently. Painful urination. Blood in the urine (hematuria). Nausea. Vomiting. Fever and chills. How is this diagnosed? This condition may be diagnosed based on: Your symptoms and medical history. A physical exam. Blood tests. Urine tests. These may be done before and after the stone passes out of your body through urination. Imaging tests, such as a CT scan, abdominal X-ray, or ultrasound. A procedure to examine the inside of the bladder (cystoscopy). How is this treated? Treatment for kidney stones depends on the size, location, and makeup of the stones. Kidney stones will often pass out of the body through urination. You may need to: Increase your fluid intake to help pass the stone. In some cases, you may be given fluids through an IV and may need to be monitored in the hospital. Take medicine for pain. Make changes in your diet to help prevent kidney stones from coming back. Sometimes, procedures are needed to remove a kidney stone. This may involve: A procedure to break up kidney stones using: ?A focused beam of light (laser therapy). ?Shock waves (extracorporeal shock wave lithotripsy). Surgery to remove kidney stones. This may be needed if you have severe pain or have stones that block your urinary tract. Follow these instructions at home: Medicines Take hiek-ldd-[id number] and prescription medicines only as told by your health care provider. Ask your health care provider if the medicine prescribed to you requires you to avoid driving or using heavy machinery. Eating and drinking Drink enough fluid to keep your urine pale yellow. You may be instructed to drink at least 8 10 glasses of water each day. This will help you pass the kidney stone. If directed, change your diet. This may include: ?Limiting how much sodium you eat. ?Eating more fruits and vegetables. ?Limiting how much animal protein you eat. Animal proteins include red meat, poultry, fish, and eggs. ?Eating a normal amount of calcium (1,000 1,300 mg per day). Follow instructions from your health care provider about eating or drinking restrictions. General instructions Collect urine samples as told by your health care provider. You may need to collect a urine sample: ?24 hours after you pass the stone. ?8 12 weeks after you pass the kidney stone, and every 6 12 months after that. Strain your urine every time you urinate, for as long as directed. Use the strainer that your health care provider recommends. Do not throw out the kidney stone after passing it. Keep the stone so it can be tested by your health care provider. Testing the makeup of your kidney stone may help prevent you from getting kidney stones in the future. Keep all follow-up visits. You may need follow-up X-rays or ultrasounds to make sure that your stone has passed. How is this prevented? To prevent another kidney stone: Drink enough fluid to keep your urine pale yellow. This is the best way to prevent kidney stones. Eat a healthy diet. Follow recommendations from your health care provider about foods to avoid. Recommendations vary depending on the type of kidney stone that you have. You may be instructed to eat a low-protein diet. Maintain a healthy weight. Where to find more information National Kidney Foundation (NKF): www.kidney.org [facility] (UCF): www.urologyhealth.org Contact a health care provider if: You have pain that gets worse or does not get better with medicine. Get help right away if: You have a fever or chills. You develop severe pain. You develop new abdominal pain. You faint. You are unable to urinate. Summary Kidney stones are solid, rock-like deposits that form inside of the kidneys. Kidney stones can cause nausea, vomiting, blood in the urine, abdominal pain, and the urge to urinate often. Treatment for kidney stones depends on the size, location, and makeup of the stones. Kidney stones will often pass out of the body through urination. Kidney stones can be prevented by drinking enough fluids, eating a healthy diet, and maintaining a healthy weight. This information is not intended to replace advice given to you by your health care provider. Make sure you discuss any questions you have with your health care provider. Document Revised: 12/12/2022 Document Reviewed: 12/12/2022 [employer] Patient Education 2022 [employer]. Follow Up Care 01/10/2024 09:04:09 With:KAIDEN CONNER, August Encarnacion, URL Address: [facility] [address] , [place] [id number]- [phone] When: Unknown [facility] 02-03-2024 Evaluation + Plan note Diagnostic Tests PendingCreatinine 02/03/24 [facility] 01-10-2024 Hospital Discharge instructions Patient Education 01/10/2024 08:56:01 Kidney Stones, [id number] Kidney Stones Kidney stones are rock-like masses that form inside of the kidneys. Kidneys are organs that make pee (urine). A kidney stone may move into other parts of the urinary tract, including: The tubes that connect the kidneys to the bladder (ureters). The bladder. The tube that carries urine out of the body (urethra). Kidney stones can cause very bad pain and can block the flow of pee. The stone usually leaves your body (passes) through your pee. You may need to have a doctor take out the stone. What are the causes? Kidney stones may be caused by: A condition in which certain glands make too much parathyroid hormone (primary hyperparathyroidism). A buildup of a type of crystals in the bladder made of a chemical called uric acid. The body makes uric acid when you eat certain foods. Narrowing (stricture) of one or both of the ureters. A kidney blockage that you were born with. Past surgery on the kidney or the ureters, such as gastric bypass surgery. What increases the risk? You are more likely to develop this condition if: You have had a kidney stone in the past. You have a family history of kidney stones. You do not drink enough water. You eat a diet that is high in protein, salt (sodium), or sugar. You are overweight or very overweight (obese). What are the signs or symptoms? Symptoms of a kidney stone may include: Pain in the side of the belly, right below the ribs (flank pain). Pain usually spreads (radiates) to the groin. Needing to pee often or right away (urgently). Pain when going pee (urinating). Blood in your pee (hematuria). Feeling like you may vomit (nauseous). Vomiting. Fever and chills. How is this treated? Treatment depends on the size, location, and makeup of the kidney stones. The stones will often pass out of the body through peeing. You may need to: Drink more fluid to help pass the stone. In some cases, you may be given fluids through an IV tube put into one of your veins at the hospital. Take medicine for pain. Make changes in your diet to help keep kidney stones from coming back. Sometimes, medical procedures are needed to remove a kidney stone. This may involve: A procedure to break up kidney stones using a beam of light (laser) or shock waves. Surgery to remove the kidney stones. Follow these instructions at home: Medicines Take zahq-yxy-hxsmkpe and prescription medicines only as told by your doctor. Ask your doctor if the medicine prescribed to you requires you to avoid driving or using heavy machinery. Eating and drinking Drink enough fluid to keep your pee pale yellow. You may be told to drink at least 8 10 glasses of water each day. This will help you pass the stone. If told by your doctor, change your diet. This may include: ?Limiting how much salt you eat. ?Eating more fruits and vegetables. ?Limiting how much meat, poultry, fish, and eggs you eat. Follow instructions from your doctor about eating or drinking restrictions. General instructions Collect pee samples as told by your doctor. You may need to collect a pee sample: ?24 hours after a stone comes out. ?8 12 weeks after a stone comes out, and every 6 12 months after that. Strain your pee every time you pee (urinate), for as long as told. Use the strainer that your doctor recommends. Do not throw out the stone. Keep it so that it can be tested by your doctor. Keep all follow-up visits as told by your doctor. This is important. You may need follow-up tests. How is this prevented? To prevent another kidney stone: Drink enough fluid to keep your pee pale yellow. This is the best way to prevent kidney stones. Eat healthy foods. Avoid certain foods as told by your doctor. You may be told to eat less protein. Stay at a healthy weight. Where to find more information National Kidney Foundation (NKF): www.kidney.org [facility] (UCF): www.urologyhealth.org Contact a doctor if: You have pain that gets worse or does not get better with medicine. Get help right away if: You have a fever or chills. You get very bad pain. You get new pain in your belly (abdomen). You pass out (faint). You cannot pee. Summary Kidney stones are rock-like masses that form inside of the kidneys. Kidney stones can cause very bad pain and can block the flow of pee. The stones will often pass out of the body through peeing. Drink enough fluid to keep your pee pale yellow. This information is not intended to replace advice given to you by your health care provider. Make sure you discuss any questions you have with your health care provider. Document Revised: 05/07/2022 Document Reviewed: 05/07/2022 [employer] Patient Education 2022 [employer]. Follow Up Care 01/09/2024 08:31:16 With:KAIDEN CONNER, August Encarnacion, URL Address: [address] [place] [id number] When: Unknown [facility] [place] 09-30-2023 Evaluation note Encounter Date Diagnosis Assessment Notes Sep, Primary osteoarthritis of both knees (ICD-10 - M17.0) [employer] Other 09-14-2023 Evaluation note* Encounter Date Diagnosis Assessment Notes Treatment Notes Treatment Clinical Notes May, Primary osteoarthritis of left knee (ICD-10 - M17.12) [employer] Other 09-05-2023 Evaluation note* Encounter Date Diagnosis Assessment Notes Treatment Notes Treatment Clinical Notes May, Type 2 diabetes mellitus with hyperglycemia, without long-term current use of insulin (ICD-10 - E11.65) [employer] Other 08-14-2023 Evaluation note* Encounter Date Diagnosis Assessment Notes Treatment Notes Treatment Clinical Notes Apr, Type 2 diabetes mellitus with hyperglycemia, without long-term current use of insulin (ICD-10 - E11.65) [employer] Other 06-05-2023 Evaluation note* Encounter Date Diagnosis Assessment Notes Treatment Notes Treatment Clinical Notes Feb, Type 2 diabetes mellitus with hyperglycemia, without long-term current use of insulin (ICD-10 - E11.65) [employer] Other 05-01-2023 Evaluation note* Encounter Date Diagnosis Assessment Notes Treatment Notes Treatment Clinical Notes January, Type 2 diabetes mellitus with hyperglycemia, without long-term current use of insulin (ICD-10 - E11.65) January, Well adult exam (ICD-10 - Z00.00) 47-year-old male who has a few chronic medical conditions. His A1c today shows good control of his diabetes but he will be placed on Ozempic 0.25 mg to help further control his diabetes and to promote weight loss which will ultimately help his knee joints which are arthritic. Patient is due for updated lab testing and this was ordered for him today. He is also due for colon cancer screening and a Cologuard was ordered for him. He will be contacted with results once reviewed. January, Colon cancer screening (ICD-10 - Z12.11) January, Acquired hypothyroidism (ICD-10 - E03.9) January, Vitamin D deficiency (ICD-10 - E55.9) [employer] Other 02-02-2023 Evaluation note* Encounter Date Diagnosis Assessment Notes Treatment Notes Treatment Clinical Notes Oct, Primary osteoarthritis of left knee (ICD-10 - M17.12) Patient presents for cortisone injections for treatment of bilateral osteoarthritis of bilateral knees. Patient was previously being treated with cortisone injection with Dr. Morgan. However, [place] has been [place], and will not return until spring. Patient was referred here for continuation of treatment until he returns. We performed a 1/1cc Marcaine / Kenalog cortisone injection into the bilateral knee joints under sterile technique. Patient tolerated the injection well without adverse reaction. Oct, Arthritis of right knee (ICD-10 - M17.11) [employer] Other 11-03-2022 Evaluation note* Encounter Date Diagnosis Assessment Notes Treatment Notes Treatment Clinical Notes Jul, Primary osteoarthritis of left knee (ICD-10 - M17.12) Jul, Arthritis of right knee (ICD-10 - M17.11) [employer] Other 08-02-2022 Evaluation note* Encounter Date Diagnosis Assessment Notes Treatment Notes Treatment Clinical Notes Apr, Mixed hyperlipidemia (ICD-10 - E78.2) [employer] Other 04-28-2022 Evaluation note* Encounter Date Diagnosis Assessment Notes Treatment Notes Treatment Clinical Notes Dec, Chronic fatigue (ICD-10 - R53.82) Patient has had thyroid lab work done recently and this is not likely to be the cause of his fatigue. We will check vitamin D, vitamin B12 as well as testosterone levels to see if this plays any role in his chronic fatigue. Dec, Vitamin D deficiency (ICD-10 - E55.9) Dec, Primary osteoarthritis of left knee (ICD-10 - M17.12) Patient did not respond as well to the most recent steroid injection as he has to the previous ones. He would like to attempt 1 more and I think this is reasonable but if he does not respond to this 1 then he would be a candidate for hyaluronic acid injections. He voiced understanding to this. Injection performed today under ultrasound guidance and aftercare instructions detailed with patient. [employer] Other 04-19-2022 Evaluation note* Encounter Date Diagnosis Assessment Notes Treatment Notes Treatment Clinical Notes Dec, Acquired hypothyroidism (ICD-10 - E03.9) Dec, Type 2 diabetes mellitus with hyperglycemia, without long-term current use of insulin (ICD-10 - E11.65) [employer] Other 02-10-2022 Evaluation note* Encounter Date Diagnosis Assessment Notes Treatment Notes Treatment Clinical Notes Oct, Obstructive sleep apnea (ICD-10 - G47.33) Fortunately the patient is using and benefiting from treatment. He does have significant leak on download, and we discussed alternate masks. He is interested in modified fullface particularly if the hose can be at the top of the head. A lot of his leakage he feels happens when the hose pulls on the mask during the night. In spite of the leak he does not have a lot of dry mouth, and his AHI is well controlled. For now continue Rx, return 1 year, call if problems Oct, BMI 50.0-59.9, adult (ICD-10 - Z68.43) Weight control is probably beneficial and certainly has positive effects on sleep apnea severity Oct, Other Call if any questions or problems. Patient is advised to work on healthy diet choices and appropriate servings, weight control, regular exercise as directed, and reduce fat intake. Use machine regularly, and keep up with mask changes as needed. Call if problems with mask toleration, increased sleepiness, or poor response to treatment. . [employer] Other 01-13-2022 Evaluation note* Encounter Date Diagnosis Assessment Notes Treatment Notes Treatment Clinical Notes Sep, Primary osteoarthritis of left knee (ICD-10 - M17.12) Patient previously responded well to steroid injection and he states that he is happy with the improvement that he has gotten from the steroid injection so he would like to continue with him. Steroid injection performed today under ultrasound guidance and aftercare instruction detail with patient. [employer] Other 12-20-2021 Evaluation note* Encounter Date Diagnosis Assessment Notes Treatment Notes Treatment Clinical Notes Aug, Well adult exam (ICD-10 - Z00.00) 45-year-old male who is overall doing very well and recently got over kidney stone with ureteral stent placement. He states he is doing well in that area now and has follow-up with urology in the next couple of months. A1c today shows excellent control of his diabetes though it is up compared to what it was previously. He was instructed to watch his sugar and carbohydrate intake and will continue to monitor going forward. Patient is due for a couple of labs and these were ordered today and he will get them done and be contacted with the results. He would like to schedule repeat left knee injection in the next 3 to 4 weeks and this will be done today as well. Patient is to follow-up in 6 months for his regular checkup and sooner as needed for any acute issue. Aug, Type 2 diabetes mellitus with hyperglycemia, without long-term current use of insulin (ICD-10 - E11.65) Aug, Mixed hyperlipidemia (ICD-10 - E78.2) Aug, Acquired hypothyroidism (ICD-10 - E03.9) [employer] Other 10-25-2021 Evaluation note* Encounter Date Diagnosis Assessment Notes Treatment Notes Treatment Clinical Notes Jun, Acquired hypothyroidism (ICD-10 - E03.9) [employer] Other 10-07-2021 Evaluation note* Encounter Date Diagnosis Assessment Notes Treatment Notes Treatment Clinical Notes Jun, Primary osteoarthritis of left knee (ICD-10 - M17.12) Patient previously responded well to steroid injection but this most recent one he did not respond as well as previously because he was using it a lot while he was on crutches recovering from his right knee arthroscopy procedure. He would like to try another steroid injection at this juncture to see if that will provide him with significant benefit in the left knee going forward. If not we will consider doing HILLS injections. [employer] Other Evaluation + Plan note Future Appointments Appointment Date:02/03/2024 12:00:00 PM Scheduled Provider:August CHÁVEZ MD Location:[facility] Appointment Type:URO Office Visit [facility] evaluation noteNo Assessments Information Available [facility] InformationNort [facility] Other Evaluation noteNo assessment information available [facility] Work Phone: Evaluation note* Diagnosis Onset Date Resolution Status Primary osteoarthritis of both knees chronic [facility] Work Phone: Hisvlhp general Narrative - Reported* Type Description Date Medical History TRISHA Medical History diabetes mallitus Surgical History ACL on left knee Surgical History Left knee meniscus repair x2 Surgical History left ring finger amputation Surgical History bilateral carpal tunnel release Surgical History right knee menicscus repair Hospitalization History see surgical hx [employer] Other Hisvtff general Narrative - Reported* Type Description Date Medical History TRISHA Medical History diabetes mallitus Surgical History ACL on left knee Surgical History Left knee meniscus repair x2 Surgical History left ring finger amputation Surgical History bilateral carpal tunnel release Surgical History right knee menicscus repair Surgical History kidney stone Surgical History stent kidney stone Hospitalization History see surgical hx [employer] Other Hisflyh general Narrative - Reported* Type Description Date Medical History TRISHA Medical History diabetes mellitis Surgical History ACL on left knee Surgical History Left knee meniscus repair x2 Surgical History left ring finger amputation Surgical History bilateral carpal tunnel release Surgical History right knee menicscus repair Surgical History kidney stone Surgical History stent kidney stone Hospitalization History see surgical hx [employer] Other Hospital course Narrative No data available for this section [facility] progress note No data available for this section [facility] Advance Directives No Advanced Directives Records Found Advance Directive Response Recorded Date/ Time Advance Directives No July 23, 2017 10:29am Advance Directive Response Recorded Date/ Time Advance Directives No July 23, 2017 11:29am Chief Complaint and Reason for Visit Chief Complaint E03.9 Chief Complaint E03.9 Sleep apnea annual follow up ARM PAIN Chief Complaint Sleep apnea annual f ollow up ARM PAIN back pain Chief Complaint Sleep apnea annual f ollow up ARM PAIN back pain rt knee pain nki Chief Complaint Sleep apnea annual f ollow up ARM PAIN back pain rt knee pain nki m25.561 m25.461 [id number] Chief Complaint E11.65 E55.9 E03.9 Chief Complaint right side pain Chief Complaint right side pain Knee injections Reason for Visit Primary osteoarthrit is of both knees Assessments No Assessments Information AvailableNo Assessments Information AvailableNo Assessments Information AvailableNo Assessments Information Available Summary Purpose Family History No Family History Records Found Relationship Condition Age at Onset Recorded Date/T jana father Family history of thyroid disease Unknown Not Specified Family history of thyroid disease Unknow n Additional Source Comments (unrecognized sect ion and content) No Status Records FoundNo Status Records FoundNo Status Records Found INFORMATION SOURCE (unrecogn ized section and content) DATE CREATED AUTHOR 02/26/2022 [facility] DATE CREATED AUTHOR AUTHOR'S ORGANIZ ATION 01/18/2024 [facility] DATE CREATED AUTHOR AUTHOR'S ORGANIZ ATION 02/06/2024 [facility] REASON FOR VISIT (unrecogniz ed section and content) KNEE INJECTIONmed refillFR EDFR HOSPITALLab resultsannualleft knee injectionNo Informationleft knee injection, chronic fatiguerefillLab resultsrefill medicationrefillinjectionsB/L knee injectionsNo InformationBilateral Knee PainNo Information1 year Follow uprefillTrulicityrefill trulicityrefillB/L KNEE STEROID INJECTIONSKNEE INJECTIONSKNEE INJECTIONSrefill/appt Care Teams (unrecognized sec tion and content) Team Status: Active Member Role Status Dates Yumi Morgan , DO Primary Care Provider Active Team Status: Inactive Member Role Status Dates Yumi Morgan , DO Primary Care Provider, Attending Provider Active Team Status: Inactive Member Role Status Dates Yumi Morgan , DO Primary Care Provider Active Start: January 08, 2024 End: January 08, 2024 Erna Khan , DO Emergency Provider Active Sta rt: January 08, 2024 End: January 08, 2024 Team Status: Inactive Member Role Status Dates Yumi Morgan , DO Primary Care Provi [email or web address], Attending Provider Active Start: January 09, 2024 End: January 09, 2024 Goals (unrecognized section and content) Goals may be documented in a n alternate section FOR RECORDS PERTAINING TO PATIENTS WHO ARE OR HAVE BEEN ENROLLED IN A CHEMICAL DEPENDENCY/SUBSTANCEABUSE PROGRAM, SOME INFORMATION MAY BE OMITTED. This clinical summary was aggregated from multiple sources. Caution should be exercised in using it in the provision of clinical care. This summary normalizes information from multiple sources, and as a consequence, information in this document may materially change the coding, format and clinical context of patient data. In addition, data may be omitted in some cases. CLINICAL DECISIONS SHOULD BE BASED ON THE PRIMARY CLINICAL RECORDS. [facility] [employer] [facility]. provides no warranty or guarantee of the accuracy or completeness of information in this document.
[2024-02-07 10:58] LABS: INR 1.03; Prothrombin Time 10.9 sec (9.0-11.6)
[2024-02-07 10:59] LABS: Partial Thromboplastin Time 29.5 sec (22.3-36.2)
[2024-02-07 11:03] LABS: Glucometer 99 mg/dL (74-106)
[2024-02-07] MEDS: LACTATED RINGER'S SOLUTION 1,000 ML 50 ML IV (12:01)
[2024-02-07] MEDS: CEFAZOLIN SODIUM/DEXTROSE,ISO 1 GM/50 ML IV.SOLN IV (12:11)
[2024-02-07] MEDS: IOHEXOL 300 MG/ML - 50 ML BTL INJ (13:00)
--- NOTE | 2024-02-07 13:24 | PM.URSON ---
Urology Surgery Operative Note Operative Note Procedure Date: 02/07/24 Time Out Performed: yes Pre-op Diagnosis: Right ureteral calculus Post-op Diagnosis: same as pre-op Procedures performed: 1. Cystoscopy. 2. Right retrograde pyelogram. 3. Right rigid ureteral dilation. 4. Right ureteroscopy. 5. Thulium laser lithotripsy of a large right ureteral calculus. 6. Stone basket extraction. 7. Placement of 6 Indonesian variable length right ureteral stent Anesthesia: General-LMA Primary Surgeon: August Chávez Complications: None Estimated blood loss (mL): 5 Findings: Large right distal ureteral calculus in the sacral ureter at S2 Specimens: Stone fragments Drains: 6 Indonesian variable length right ureteral stent Indications for Procedures: This gentleman has a retained right ureteral calculus that he is unable to pass. By CT scan it was 6 to 7 mm. Follow-up IVP done nearly a month later reveals retained ureteral calculus. He now presents for definitive ureteroscopic stone manipulation and probable right stent placement. He has signed an informed consent after all risks were explained. Detailed description of Procedure: The patient was brought to the operating room and placed on the operating room table in the supine position. SCDs were placed on the lower extremities and turned on and functioning during the entire case. Timeout was done by all parties in the room. We all agreed upon the patient's identification and the planned procedures for this patient. Genn. anesthesia was then administered. The patient was then repositioned into the modified dorsal lithotomy position. All pressure points were satisfactorily padded. Genitalia were sterilely prepped and draped. I started by passing a 22 Indonesian Olympus cystoscope per urethra and into the bladder. The anterior urethra was normal. The prostatic urethra showed bilobar hypertrophy. Panendoscopy in the bladder showed no evidence of any tumors or stones. While using fluoroscopy I was unable to see a stone. I then passed a Glidewire through the scope and guided up the right ureter and into the kidney. As soon as I did this I had an E flux of cloudy urine into the bladder. I then used a 8 and 10 Indonesian rigid dilator to dilate the distal ureter. I could feel a stone with the tip of the dilator. I then removed the cystoscope and then passed a semirigid ureteroscope adjacent to the wire through the urethra into the bladder and up the right ureter. I was unable to get high enough to safely deal with the stone. I then did a retrograde through the scope and I saw a subtle filling defect At the S2 level. The semirigid scope was removed. I then passed a 10/12 ureteral access sheath over the wire and up the ureter to the S2 level. The stylette and wire were then removed. I then passed a flexible ureteroscope through the access sheath and into the ureter and I was immediately at the stone. I then used a 200 Angstrom laser fiber and passed it through the scope and made contact with the stone. Laser lithotripsy was done with the thulium laser at 6 W then ultimately 8 W under fragmenting mode. The stone was very hard. It fragmented into several pieces. A 0 tip nitinol basket was used to engage and extract pieces. Once all the ureter was free of stone fragments I then slowly removed the sheath with the beak of the ureteroscope proximal to the cephalad end of the sheath. I scoped the rest of the distal ureter and there were no other stones. I then passed the cystoscope into the bladder and there were several stone pieces within the bladder. The Ilich evacuator was used to get all these pieces out and they were sent for stone analysis. I then slid a Glidewire through the scope and up the ureter and then slid a 6 Indonesian variable length stent over the wire up into the kidney. The wire was removed and there were good curls in the kidney and in the bladder. The bladder was drained of its contents and the scope was then removed. He was then transferred to a [facility] bed and wheeled to PACU in stable condition. He will be discharged to home with a prescription for Vesicare 10 mg daily #14 and cephalexin 500 mg twice daily #14.
[2024-02-07] MEDS: SOLIFENACIN SUCCINATE 10 MG TABLET PO (13:51)
== END 2024-02-07 14:23 | disposition home or self-care (01) ==
PROVIDERS: Visit Provider Urology
PROC: (CPT 918; principal; 2024-02-07 12:00)
DX: N20.1 Calculus of ureter (principal); E11.9 Type 2 diabetes mellitus without complications; Z87.891 Personal history of nicotine dependence
CPT/HCPCS: 52356; 36415; 74420; 82365; 82948; 85610; 85730; 99999; J1094; J2704; Q9967